=== PATIENT | male | born 1965 | race Caucasian/White ===

== ENCOUNTER 2023-12-02 20:21 | Emergency (ER) | payer MEDICAID, SELFPAY ==
[2023-12-02 20:29] VITALS: BP 168/105; PULSE 102; RESP 20; O2SAT 93; BMI 33.7
--- NOTE | 2023-12-02 20:34 | ECG_ITS ---
[facility] Test Date: 2023-12-02 Pat Name: Estrada Bangura Department: Room: Gender: Male Design Checker: : 1965 Requested By: Lane Castro Order Number: [id number] Ricky MD: Beau Denny M.D. Measurements Intervals [place] Rate: 100 P: 32 [place]: 165 QRS: 70 QRSD: 105 T: 10 QT: 389 QTc: 503 Interpretive Statements SINUS TACHYCARDIA NONSPECIFIC ST & T-WAVE ABNORMALITY ABNORMAL RHYTHM ECG No previous ECG available for comparison Electronically Signed On 12-03-2023 8:21:40 PBX TECHNICIAN by Beau Denny M.D. [id number] f
--- NOTE | 2023-12-02 20:48 | XRR_ITS ---
PROCEDURE INFORMATION: Exam: XR Chest Exam date and time: 12/02/2023 8:58 PM Age: 58 years old Clinical indication: Angina pectoris; Patient HX: Chest pain; SOB; Additional info: Chest pain; Sobsind. TECHNIQUE: Imaging protocol: Radiologic exam of the chest. Views: 1 view. COMPARISON: No relevant prior studies available. FINDINGS: Lungs: Unremarkable. No consolidation. Pleural spaces: Unremarkable. No pleural effusion. No pneumothorax. Heart/Mediastinum: Unremarkable. No cardiomegaly. Bones/joints: Unremarkable. XR/XR chest 1V portable [id number] IMPRESSION: No acute findings.
--- NOTE | 2023-12-02 20:48 | ECG_ITS ---
[facility] Test Date: 2024-01-31 Pat Name: Estrada Bangura Department: Room: Gender: Male Heel Seat Sander: : 1965 Requested By: Chang Templeton Order Number: [id number] Ricky MD: Ifeanyi Almendarez M.D. Measurements Intervals [place] Rate: 98 P: 3 MO: 152 QRS: 57 QRSD: 109 T: 60 QT: 382 QTc: 488 Interpretive Statements SINUS RHYTHM WITH OCCASIONAL SUPRAVENTRICULAR PREMATURE COMPLEXES Compared to ECG 12/21/2023 03:02:31 No significant changes Electronically Signed On 01-31-2024 18:40:03 CDT by Ifeanyi Almendarez M.D. [id number] f
[2023-12-02 20:57] LABS: Basophils % 0.3 %; Eosinophils % 0.2 %; Hematocrit 43.5 % (37-53); Lymphocytes # 3.1 10^3/uL (0.8-4.8); Lymphocytes % 35.4 %; Mean Corpuscular HGB Conc 32.4 g/dL (30-55); Mean Corpuscular Hemoglobin 27.2 pg (27-33); Mean Platelet Volume 8.2 fL (7.4-10.4); Monocytes # 0.8 10^3/uL (0.2-0.9); Monocytes % 8.6 %; Neutrophils # 4.79 10^3/uL (1.8-7.7); Nucleated Red Blood Cells % 0 %; Platelet Count 195 10^3/cmm (157-399); Red Blood Count 5.18 10^6/uL (3.85-5.65); Red Cell Distribution Width 13.4 % (12.1-15.1); White Blood Count 8.72 10^3/uL (3.29-11.43)
[2023-12-02 21:07] LABS: Troponin(5th) Baseline 15 ng/L (0-15)
[2023-12-02 21:09] LABS: Alanine Aminotransferase 34 U/L (0-41); Albumin Level 4.1 g/dL (3.5-5.2); Alkaline Phosphatase 63 U/L (40-130); Anion Gap 19.1 (5-19); Aspartate Amino Transferase 23 U/L (0-40); Blood Urea Nitrogen 23 mg/dL (6-20); Calcium 9.2 mg/dL (8.5-10.5); Carbon Dioxide 26 mmol/L (22-29); Chloride 101 mmol/L (98-107); Globulin 2.4 g/dL (1.3-4.6); Glomerular Filtration Rate 76.5 mL/min (90-130); Glucose 132 mg/dL (65-115); Osmolality Calculated 302 mOsm/kg (285-295); Potassium 3.1 mmol/L (3.5-5.1); Sodium 143 mmol/L (136-145); Total Bilirubin 0.2 mg/dL (0.15-1.2); Total Protein 6.5 g/dL (6.6-8.7)
[2023-12-02 21:14] LABS: Influenza A by IFA negative (Negative); Influenza B by IFA negative (Negative); SARS Covid-2 Antigen negative (Negative)
--- NOTE | 2023-12-02 21:27 | W.ED.CHESTPA ---
HPI - Chest Pain General: Chief Complaint: Chest Pain Stated Complaint: Sob chest pain Time Seen by Provider: 12/02/23 20:29 History of Present Illness: This patient is a 58-year-old white male who presents to the emergency department complaining of shortness of breath. He states he was recently diagnosed with fluid on his lungs and pneumonia. States he has been on water pills and yesterday was placed on Levaquin. Associated symptoms: Reports dyspnea Review of Systems General: Reports: 10 or more systems reviewed and unremarkable except in HPI and below Resp: Reports: dyspnea Physical Exam Const: COMMON NORMALS: no acute distress, patient oriented x3 and no limitations GENERAL APPEARANCE: cooperative and comfortable HENMT: COMMON NORMALS: normocephalic, atraumatic, Normal nasal mucous membranes and turbinates present, moist oral mucous membranes and oropharynx normal HEAD & SCALP: normal to inspection, normocephalic and atraumatic FACE & SINUS: normal facial exam NOSE: Normal nasal mucous membranes and turbinates present Eye: COMMON NORMALS: Equal, round and reactive pupils present, EOMs intact bilaterally and conjunctivae normal GENERAL EYE: appearance normal, both eyes and all related structures CONJUNCTIVA: Yes conjunctivae normal PUPIL: Yes Equal, round and reactive pupils present Neck/C-Spine: COMMON NORMALS: supple and no JVD Chest: COMMONS NORMALS: normal inspection of the chest Resp: COMMON NORMALS: normal respiratory effort and clear to auscultation bilaterally AUSCULTATION: clear to auscultation bilaterally Cardio: COMMON NORMALS: no JVD, regular rate, regular rhythm, No gallops present (Cardio), No murmurs present (Cardio) and No rub (Cardio) RATE: regular rate RHYTHM: regular rhythm GI: COMMON NORMALS: Normal to inspection, nondistended, normoactive bowel sounds present, Soft to palpation and non-tender AUSCULTATION: Yes normoactive bowel sounds PALPATION: Yes Soft to palpation : COMMON NORMALS: Yes no CVA tenderness BLADDER/KIDNEY EXAM: Yes no CVA tenderness Back/Pelvis: COMMON NORMALS: no CVA tenderness and thoracic and lumbar spine normal to inspection Extremity: COMMON NORMALS: normal to inspection Neuro: COMMON NORMALS: patient oriented x3 and CN's II-XII intact bilaterally Psych: COMMON NORMALS: mental status grossly normal, Normal thought process present and cooperative THOUGHT PROCESS: Normal thought process present Skin: COMMON NORMALS: no rashes or lesions noted, turgor normal and no jaundice GENERAL SKIN EXAM: no rashes or lesions noted and turgor normal Course Vital Signs: Vital signs: Vital Signs Pulse Rate 102 H 12/02/23 20:29 Respiratory Rate 20 H 12/02/23 20:29 Blood Pressure 168/105 12/02/23 20:29 Pulse Oximetry 93 12/02/23 20:29 Oxygen Delivery Me thod Room Air 12/02/23 20:29 MDM - Chest Pain Medical Decision Making EKG revealed sinus rhythm with no ST segment abnormalities. Chest x-ray did not reveal any infiltrates, pleural effusions or cardiomegaly. CBC and CMP were normal. Troponin was 15. COVID and influenza negative. I discussed all the results with the patient. Patient seemed upset. I told him I certainly do not see any fluid on his lungs at this time and there are no infiltrates. I recommended he continue the Levaquin that is provider placed him on yesterday. I recommended he follow-up in the clinic for recheck. He was discharged in stable condition. Lab Data 12/02/23 20:38 12/02/23 20:38 Radiology Impressions Chest X-Ray 12/02/23 20:48 IMPRESSION: No acute findings. Laboratory Results WBC 8.72 10^3/uL (3.29-11.43) 12/02/23 20:38 RBC 5.18 10^6/uL (3.85-5.65) 12/02/23 20:38 Hgb 14.10 g/dL (11.27-16.99) 12/02/23 20:38 Hct 43.5 % (37-53) 12/02/23 20:38 MCV 84.0 fl (82-101) 12/02/23 20:38 MCH 27.2 pg (27-33) 12/02/23 20:38 MCHC 32.4 g/dL (30-55) 12/02/23 20:38 RDW 13.4 % (12.1-15.1) 12/02/23 20:38 Plt Count 195 10^3/cmm (157-399) 12/02/23 20:38 MPV 8.2 fL (7.4-10.4) 12/02/23 20:38 Neut % (Auto) 55.0 % 12/02/23 20:38 Lymph % (Auto) 35.4 % 12/02/23 20:38 [place] % (Auto) 8.6 % 12/02/23 20:38 Eos % (Auto) 0.2 % 12/02/23 20:38 Baso % (Auto) 0.3 % 12/02/23 20:38 Neut # (Auto) 4.79 10^3/uL (1.8-7.7) 12/02/23 20:38 Lymph # (Auto) 3.1 10^3/uL (0.8-4.8) 12/02/23 20:38 [place] # (Auto) 0.8 10^3/uL (0.2-0.9) 12/02/23 20:38 Eos # (Auto) 0.0 10^3/uL (0.0-0.8) 12/02/23 20:38 Baso # (Auto) 0.0 10^3/uL (0.0-0.1) 12/02/23 20:38 Nucleated RBC % (auto) 0 % 12/02/23 20:38 Nucleated RBCs # 0.0 /100WBC 12/02/23 20:38 Sodium 143 mmol/L (136-145) 12/02/23 20:38 Potassium 3.1 mmol/L (3.5-5.1) L 12/02/23 20:38 Chloride 101 mmol/L (98-107) 12/02/23 20:38 Carbon Dioxide 26 mmol/L (22-29) 12/02/23 20:38 Anion Gap 19.1 (5-19) H 12/02/23 20:38 BUN 23 mg/dL (6-20) H 12/02/23 20:38 Creatinine 1.0 mg/dL (0.7-1.2) 12/02/23 20:38 GFR Calculation 76.5 mL/min (90-130) L 12/02/23 20:38 Glucose 132 mg/dL (65-115) H 12/02/23 20:38 Calculated Osmolality 302 mOsm/kg (285-295) H 12/02/23 20:38 Calcium 9.2 mg/dL (8.5-10.5) 12/02/23 20:38 Total Bilirubin 0.2 mg/dL (0.15-1.2) 12/02/23 20:38 AST 23 U/L (0-40) 12/02/23 20:38 ALT 34 U/L (0-41) 12/02/23 20:38 Alkaline Phosphatase 63 U/L (40-130) 12/02/23 20:38 Troponin T Baseline 15 ng/L (0-15) 12/02/23 20:38 Total Protein 6.5 g/dL (6.6-8.7) L 12/02/23 20:38 Albumin 4.1 g/dL (3.5-5.2) 12/02/23 20:38 Globulin 2.4 g/dL (1.3-4.6) 12/02/23 20:38 Influenza Type A Ag negative (Negative) 12/02/23 20:44 Influenza Type B Ag negative (Negative) 12/02/23 20:44 SARS-CoV-2 Ag (Rapid) negative (Negative) 12/02/23 20:44 All radiology interpretation(s) finalized by discharge Discharge Plan Discharge Patient Disposition: Home Clinical Impression: Shortness of breath Condition: Stable Discharge Orders: Discharge ED (Routine); Ordered 12/02/23 Ordered By: Chang Templeton Referrals: Traci Hoskins DO [Primary Care Provider] - 1-3 days Coding Level of Care Code ED Granite Sandblaster Apprentice for Pablo Borges
[2023-12-02 21:32] LABS: NT Pro B Type Natriuretic Pept 819 pg/mL (0-125)
--- NOTE | 2023-12-02 21:46 | PC.NURSE ---
Doctor spoke to patient and explained that his labs and tests looked good and he was going to be discharged home. The patient became furious, and states I do not like being called a liar, something was wrong . When discharging patient ,I explained that he needs to follow up with his PCP with ongoing treatment .
--- NOTE | 2023-12-03 07:41 | W.ED.CHESTPA ---
HPI - Chest Pain General: Chief Complaint: Chest Pain Stated Complaint: Sob chest pain Time Seen by Provider: 12/02/23 20:29 History of Present Illness: This is an addendum to the chart I completed on this patient yesterday. I attempted to contact the patient this morning to discuss the need for a CT angiogram of his chest to rule out pulmonary embolism if he has not had that study done yet. I did leave him a message. Course Vital Signs: Vital signs: Vital Signs Pulse Rate 102 H 12/02/23 20:29 Respiratory Rate 20 H 12/02/23 20:29 Blood Pressure 168/105 12/02/23 20:29 Pulse Oximetry 93 12/02/23 20:29 Oxygen Delivery Me thod Room Air 12/02/23 20:29 MDM - Chest Pain Medical Decision Making See HPI. Lab Data 12/02/23 20:38 12/02/23 20:38 Radiology Impressions Chest X-Ray 12/02/23 20:48 IMPRESSION: No acute findings. Laboratory Results WBC 8.72 10^3/uL (3.29-11.43) 12/02/23 20:38 RBC 5.18 10^6/uL (3.85-5.65) 12/02/23 20:38 Hgb 14.10 g/dL (11.27-16.99) 12/02/23 20:38 Hct 43.5 % (37-53) 12/02/23 20:38 MCV 84.0 fl (82-101) 12/02/23 20:38 MCH 27.2 pg (27-33) 12/02/23 20:38 MCHC 32.4 g/dL (30-55) 12/02/23 20:38 RDW 13.4 % (12.1-15.1) 12/02/23 20:38 Plt Count 195 10^3/cmm (157-399) 12/02/23 20:38 MPV 8.2 fL (7.4-10.4) 12/02/23 20:38 Neut % (Auto) 55.0 % 12/02/23 20:38 Lymph % (Auto) 35.4 % 12/02/23 20:38 [place] % (Auto) 8.6 % 12/02/23 20:38 Eos % (Auto) 0.2 % 12/02/23 20:38 Baso % (Auto) 0.3 % 12/02/23 20:38 Neut # (Auto) 4.79 10^3/uL (1.8-7.7) 12/02/23 20:38 Lymph # (Auto) 3.1 10^3/uL (0.8-4.8) 12/02/23 20:38 [place] # (Auto) 0.8 10^3/uL (0.2-0.9) 12/02/23 20:38 Eos # (Auto) 0.0 10^3/uL (0.0-0.8) 12/02/23 20:38 Baso # (Auto) 0.0 10^3/uL (0.0-0.1) 12/02/23 20:38 Nucleated RBC % (auto) 0 % 12/02/23 20:38 Nucleated RBCs # 0.0 /100WBC 12/02/23 20:38 Sodium 143 mmol/L (136-145) 12/02/23 20:38 Potassium 3.1 mmol/L (3.5-5.1) L 12/02/23 20:38 Chloride 101 mmol/L (98-107) 12/02/23 20:38 Carbon Dioxide 26 mmol/L (22-29) 12/02/23 20:38 Anion Gap 19.1 (5-19) H 12/02/23 20:38 BUN 23 mg/dL (6-20) H 12/02/23 20:38 Creatinine 1.0 mg/dL (0.7-1.2) 12/02/23 20:38 GFR Calculation 76.5 mL/min (90-130) L 12/02/23 20:38 Glucose 132 mg/dL (65-115) H 12/02/23 20:38 Calculated Osmolality 302 mOsm/kg (285-295) H 12/02/23 20:38 Calcium 9.2 mg/dL (8.5-10.5) 12/02/23 20:38 Total Bilirubin 0.2 mg/dL (0.15-1.2) 12/02/23 20:38 AST 23 U/L (0-40) 12/02/23 20:38 ALT 34 U/L (0-41) 12/02/23 20:38 Alkaline Phosphatase 63 U/L (40-130) 12/02/23 20:38 Troponin T Baseline 15 ng/L (0-15) 12/02/23 20:38 NT-Pro-B Natriuret Pep 819 pg/mL (0-125) H 12/02/23 20:38 Total Protein 6.5 g/dL (6.6-8.7) L 12/02/23 20:38 Albumin 4.1 g/dL (3.5-5.2) 12/02/23 20:38 Globulin 2.4 g/dL (1.3-4.6) 12/02/23 20:38 Influenza Type A Ag negative (Negative) 12/02/23 20:44 Influenza Type B Ag negative (Negative) 12/02/23 20:44 SARS-CoV-2 Ag (Rapid) negative (Negative) 12/02/23 20:44 All radiology interpretation(s) finalized by discharge Discharge Plan Discharge Patient Disposition: Home Clinical Impression: Shortness of breath Condition: Stable Discharge Orders: Discharge ED (Routine); Ordered 12/02/23 Ordered By: Chang Templeton Referrals: Traci Hoskins DO [Primary Care Provider] - 1-3 days Coding Level of Care Code ED Manufacturing Teacher for Pablo Borges
== END 2023-12-02 21:48 | disposition home or self-care (01) ==
PROVIDERS: Emergency Provider Emergency Medicine; PCP Family Medicine
DX: R06.02 Shortness of breath (principal); Z11.52 Encounter for screening for COVID-19
CPT/HCPCS: 71045; 80053; 83880; 84484; 85025; 87426; 87804; 93005; 99285

== ENCOUNTER 2023-12-20 10:06 | Inpatient (IN) | payer MEDICAID, SELFPAY ==
[2023-12-20] VITALS (13 sets, daily range): BP systolic 132–169; BP diastolic 80–109; PULSE 80–98; RESP 16–23; TEMP 36.4–36.9; O2SAT 94–99; BMI 35.6; BMI 35.2
--- NOTE | 2023-12-20 10:11 | ECG_ITS ---
[facility] Test Date: 2023-12-20 Pat Name: Estrada Bangura Department: Room: Gender: Male Bander: : 1965 Requested By: Jarrod Orozco Order Number: [id number] Ricky MD: Shine López M.D. Measurements Intervals [place] Rate: 87 P: 24 [place]: 136 QRS: 80 QRSD: 98 T: 7 QT: 394 QTc: 475 Interpretive Statements SINUS RHYTHM WITH OCCASIONAL SUPRAVENTRICULAR PREMATURE COMPLEXES NONSPECIFIC T-WAVE ABNORMALITY Compared to ECG 12/02/2023 20:25:30 Sinus tachycardia no longer present T-wave abnormality still present Electronically Signed On 12-20-2023 11:08:16 LIVE TRUCK OPERATOR by Shine López M.D. [id number] f
--- NOTE | 2023-12-20 10:12 | XR_ITS ---
WS: [id number] Exam: XR chest 1V portable [id number] Date/Time of Exam: 12/20/2023 10:12 AM Reason For Exam: sob Comparison 12/02/2023. There is pulmonary vascular congestion with prominent septal lines in the lateral lung zones. There i s likely interstitial pulmonary edema. Cardiomediastinal silhouette is unremarkable. Minimal fluid in the minor fissure on the RIGHT. The lungs are fully expanded. No consolidating infiltrates noted. IMPRESSION: 1. Pulmonary vascular congestion with prominent septal lines in the lateral lung zones suspicious for interstitial pulmonary edema.
--- NOTE | 2023-12-20 10:30 | CT_ITS ---
WS: [id number] CT CHEST ANGIOGRAPHY WITH REFORMATS HISTORY: sob TECHNIQUE: Contiguous axial images are obtained through the chest during arterial injection of intrav enous contrast. Images are reconstructed to evaluate the pulmonary arteries. MIP imaging also reviewe d. All CT scans at [facility] use at least one of these dose optimization techniques: automat ed exposure control; mA and/or kV adjustment per patient size (includes targeted exams where dose is matched to clinical indication); or iterative reconstruction. CONTRAST: Omnipaque 350; 100 mL IV. DLP: 530.46 mGy.cm COMPARISON: None available. No central pulmonary embolism. Good opacification of the pulmonary arteries centrally into the lobar and segmental branches. Beyond the segmental branches the opacification is becoming limited by breath ing motion artifact and pulmonary edema. There is no RIGHT heart strain. Moderate LEFT heart enlargem ent. Small bilateral pleural effusions. No pericardial effusion. Coronary artery calcifications are n oted. Prominent mediastinal and hilar lymph nodes. RIGHT hilar lymph nodes measure up to 15 mm in luiz meter. Bilateral hilar and bilateral paratracheal lymph nodes. These may all be reactive lymph nodes. There is breathing motion artifact and mild pulmonary edema. There is some component of tree-in-bud a irspace disease which is typically seen with endobronchial pneumonia. Small hiatal hernia. Marked hepatic steatosis. The liver appears enlarged but is not completely included on this exam. No adrenal mass. Gallbladder is not identified. No destructive bone lesions. IMPRESSION: 1. No pulmonary embolism. 2. Marked LEFT heart enlargement. 3. Small bilateral pleural effusions. 4. Mild pulmonary edema and possible pneumonitis. 5. Mediastinal and hilar enlarged lymph nodes. Suspect these are reactive lymph nodes. 6. Marked hepatic steatosis.
--- NOTE | 2023-12-20 10:31 | ED_ITS ---
HPI - SOB/Dyspnea 2 General: Chief Complaint: Shortness of Breath/Dyspnea Stated Complaint: sob Time Seen by Provider: 12/20/23 10:21 Source: patient Mode of arrival: ambulatory Limitations: no limitations History of Present Illness: HPI Narrative: 58-year-old male states been having shor tness of breath over the last 3 weeks he been seen here recently had a normal workup he states he is continue to have dyspnea and a mild cough he denies any chest pain denies any fevers he had some slight increase in swelling denies any vomiting or diarrhea. Patient's pulse ox here is 97%. Associated symptoms: Deny abdominal pain, chest pain, fever(s), nausea or vomiting Review of Systems 2 Const: Denies: fever(s), chills, body aches or change in appetite Eyes: Denies: blurry vision or eye discomfort ENMT: Denies: throat pain or dental pain Card: Denies: chest pain Resp: Reports: dyspnea GI: Denies: abdominal pain, nausea, vomiting or diarrhea Musc: Denies: neck pain or back pain Skin/Breast: Denies: rash Neuro: Denies: headache(s) Physical Exam 2 Const: COMMON NORMALS: no acute distress, patient oriented x3 and healthy appearing HENMT: COMMON NORMALS: normocephalic and atraumatic HEAD & SCALP: n ormocephalic and atraumatic Eye: COMMON NORMALS: conjunctivae normal CONJUNCTIVA: Yes conjunctivae normal Neck/C-Spine: COMMON NORMALS: full ROM and supple Chest: COMMONS NORMALS: normal inspection of the chest Resp: COMMON NORMALS: No retractions, No use of accessory muscles and clear to auscultation bilaterally AUSCULTATION: clear to auscultation bilaterally Cardio: COMMON NORMALS: regular rate, regular rhythm and No murmurs present (Cardio) RATE: regular rate RHYTHM: regular rhythm Extremity: COMMON NORMALS: normal to inspection and full ROM Neuro: COMMON NORMALS: patient oriented x3, moves all extremities and no focal motor deficits Psych: COMMON NORMALS: mental status grossly normal, Normal thought process present and cooperative THOUGHT PROCESS: Normal thought process present Skin: COMMON NORMALS: no rashes or lesions noted and no wounds GENERAL SKIN EXAM: no rashes or lesions noted Course 2 Vital Signs: Vital signs: Vital Signs Temperature 98.2 F 12/20/23 10:21 Pulse Rate 84 12/20/23 12:00 Respiratory Rate 18 12/20/23 12:00 Blood Pressure 147/97 12/20/23 12:30 Pulse Oximetry 99 12/20/23 12:30 Oxygen Delivery Me thod Room Air 12/20/23 10:21 MDM - SOB/Dyspnea Medical Decision Making Patient presents here with shortness of breath his CT and x-ray shows pulmonary edema along with cardiac enlargement he likely has undiagnosed CHF did give him Lesly spoke to the hospitalist and will admit at this time. Medical Records I reviewed the patient's medical records. Lab Data I reviewed the patient's lab results. 12/20/23 10:31 12/20/23 10:31 Labs/Radiology: Laboratory Results WBC 9.57 10^3/uL (3.29-11.43) 12/20/23 10:31 RBC 5.10 10^6/uL (3.85-5.65) 12/20/23 10:31 Hgb 14.10 g/dL (11.27-16.99) 12/20/23 10:31 Hct 43.5 % (37-53) 12/20/23 10:31 MCV 85.3 fl (82-101) 12/20/23 10:31 MCH 27.6 pg (27-33) 12/20/23 10:31 MCHC 32.4 g/dL (30-55) 12/20/23 10:31 RDW 13.4 % (12.1-15.1) 12/20/23 10:31 Plt Count 167 10^3/cmm (157-399) 12/20/23 10:31 MPV 8.4 fL (7.4-10.4) 12/20/23 10:31 Neut % (Auto) 73.7 % 12/20/23 10:31 Lymph % (Auto) 17.5 % 12/20/23 10:31 [place] % (Auto) 7.1 % 12/20/23 10:31 Eos % (Auto) 0.9 % 12/20/23 10:31 Baso % (Auto) 0.4 % 12/20/23 10:31 Neut # (Auto) 7.05 10^3/uL (1.8-7.7) 12/20/23 10:31 Lymph # (Auto) 1.7 10^3/uL (0.8-4.8) 12/20/23 10:31 [place] # (Auto) 0.7 10^3/uL (0.2-0.9) 12/20/23 10:31 Eos # (Auto) 0.1 10^3/uL (0.0-0.8) 12/20/23 10:31 Baso # (Auto) 0.0 10^3/uL (0.0-0.1) 12/20/23 10:31 Nucleated RBC % (auto) 0 % 12/20/23 10:31 Nucleated RBCs # 0.0 /100WBC 12/20/23 10:31 D-Dimer 0.99 ug/mLFEU (0-0.59) H 12/20/23 10:31 Sodium 141 mmol/L (136-145) 12/20/23 10:31 Potassium 3.5 mmol/L (3.5-5.1) 12/20/23 10:31 Chloride 106 mmol/L (98-107) 12/20/23 10:31 Carbon Dioxide 24 mmol/L (22-29) 12/20/23 10:31 Anion Gap 14.5 (5-19) 12/20/23 10:31 BUN 12 mg/dL (6-20) 12/20/23 10:31 Creatinine 0.8 mg/dL (0.7-1.2) 12/20/23 10:31 GFR Calculation 98.9 mL/min (90-130) 12/20/23 10:31 Glucose 126 mg/dL (65-115) H 12/20/23 10:31 Calculated Osmolality 293 mOsm/kg (285-295) 12/20/23 10:31 Calcium 8.5 mg/dL (8.5-10.5) 12/20/23 10:31 Total Bilirubin 0.3 mg/dL (0.15-1.2) 12/20/23 10:31 AST 24 U/L (0-40) 12/20/23 10:31 ALT 47 U/L (0-41) H 12/20/23 10:31 Alkaline Phosphatase 66 U/L (40-130) 12/20/23 10:31 Troponin T Baseline 14 ng/L (0-15) 12/20/23 10:31 NT-Pro-B Natriuret Pep 1208 pg/mL (0-125) H 12/20/23 10:31 Total Protein 6.2 g/dL (6.6-8.7) L 12/20/23 10:31 Albumin 4.0 g/dL (3.5-5.2) 12/20/23 10:31 Globulin 2.2 g/dL (1.3-4.6) 12/20/23 10:31 All radiology interpretation(s) finalized by discharge EKG Data EKG 1: I personally reviewed and interpreted this EKG as follows: EKG Interpretation Date: 12/20/23 EKG interpretation time: 10:11 Interpretation: nsr hr [address] or t wave abnormalities qrs 98 qtc 438 Discharge Plan Discharge Patient Disposition: Admitted As Inpatient Clinical Impression: Pulmonary edema Condition: Stable Prescriptions: No Action furosemide 20 mg tablet 20 mg PO DAILY metoprolol tartrate 25 mg tablet 25 mg PO BID hydrochlorothiazide 12.5 mg tablet 12.5 mg PO DAILY Symbicort 160-4.5 mcg/actuation HFA aerosol inhaler 2 puff INHALATION BID Referrals: Traci Hoskins DO [Primary Care Provider] - Coding Level of Care Code ED Pyridine Recovery Operator for Chg Jony
--- NOTE | 2023-12-20 10:48 | PC.PHAR ---
pt states he takes care of his own medications-pt states he stop taking his lasix 20mg daily a week ago ext shows last filled 12/01/23 30d/s pts states they lost the lasix and unsure where it is-pt states takes the orange peach looking pill once a day (hctz 12.5mg)?? and the white pill bid (metoptolol tartrate 25mg bid filled 12/01/23 0d/s)???
[2023-12-20 11:01] LABS: Basophils % 0.4 %; Eosinophils # 0.1 10^3/uL (0.0-0.8); Eosinophils % 0.9 %; Hematocrit 43.5 % (37-53); Lymphocytes # 1.7 10^3/uL (0.8-4.8); Lymphocytes % 17.5 %; Mean Corpuscular HGB Conc 32.4 g/dL (30-55); Mean Corpuscular Hemoglobin 27.6 pg (27-33); Mean Corpuscular Volume 85.3 fl (82-101); Mean Platelet Volume 8.4 fL (7.4-10.4); Monocytes # 0.7 10^3/uL (0.2-0.9); Monocytes % 7.1 %; Neutrophils # 7.05 10^3/uL (1.8-7.7); Neutrophils % 73.7 %; Nucleated Red Blood Cells % 0 %; Platelet Count 167 10^3/cmm (157-399); Red Cell Distribution Width 13.4 % (12.1-15.1); White Blood Count 9.57 10^3/uL (3.29-11.43)
[2023-12-20 11:15] LABS: D Dimer 0.99 ug/mLFEU (0-0.59)
[2023-12-20] MEDS: iohexol 350 mg/mL 500 mL Btl (per mL) IV (11:27)
[2023-12-20 11:30] LABS: Troponin(5th) Baseline 14 ng/L (0-15)
[2023-12-20 11:37] LABS: Alanine Aminotransferase 47 U/L (0-41); Alkaline Phosphatase 66 U/L (40-130); Anion Gap 14.5 (5-19); Aspartate Amino Transferase 24 U/L (0-40); Blood Urea Nitrogen 12 mg/dL (6-20); Calcium 8.5 mg/dL (8.5-10.5); Carbon Dioxide 24 mmol/L (22-29); Chloride 106 mmol/L (98-107); Creatinine Clr Calc Pharmacy 124.8699; Globulin 2.2 g/dL (1.3-4.6); Glomerular Filtration Rate 98.9 mL/min (90-130); Glucose 126 mg/dL (65-115); NT Pro B Type Natriuretic Pept 1208 pg/mL (0-125); Osmolality Calculated 293 mOsm/kg (285-295); Potassium 3.5 mmol/L (3.5-5.1); Sodium 141 mmol/L (136-145); Total Bilirubin 0.3 mg/dL (0.15-1.2); Total Protein 6.2 g/dL (6.6-8.7)
[2023-12-20] MEDS: acetaminophen 500 mg Tablet 1000 MG PO (11:47)
[2023-12-20] MEDS: FUROsemide 10 mg/mL SDV 4mL 40 MG IVP (11:51)
--- NOTE | 2023-12-20 12:12 | ECG_ITS ---
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 Measurements Intervals [place] Rate: 87 P: 23 ND: 130 QRS: 74 QRSD: 99 T: 40 QT: 411 QTc: 496 Interpretive Statements SINUS RHYTHM WITH OCCASIONAL SUPRAVENTRICULAR PREMATURE COMPLEXES Compared to ECG 12/20/2023 10:11:15 T-wave abnormality no longer present Electronically Signed On 12-20-2023 15:27:43 CONSTRUCTION TRENCH DIGGER by Shine López M.D. [email or web address] [facility] community hospitalBroadband Networks Wireless Internet/store/OM/[id number]
--- NOTE | 2023-12-20 13:00 | P.HP_ITS ---
Providers/Chief Complaint 2 Primary Care Provider: Traci Hoskins DO Chief Complaint: sob History of Present Illness Estrada Bangura is a 58 year old male with no known history of congestive heart failure presented to the hospital today for complaint of shortness of breath. He says this has been going on for the last few weeks and it has now worsened. He has been to the hospital before with a similar complaint on the of this month. He says he was recently diagnosed with heart failure and he has been on water pills. He was also placed on Levaquin earlier on December 02. Chest x- ray did not reveal any infiltrates at that time effusions or cardiomegaly. Troponin was 15. COVID influenza was negative. Patient was upset and he was recommended to continue Levaquin and he was discharged home. He was called back the next day and was requested to return to the ER for CT angiogram of his chest to rule out PE. Today he presents with shortness of breath once again. Denies any abdominal pain chest pain, fever, nausea, vomiting. ED course: 147 over 97 g rate 18, pulse 84, temperature 98.2, saturating 99% on room air. CT chest PE protocol was completed which ruled out a PE. Chest x-ray does show evidence of pulmonary edema along with cardiomegaly. He was given Lasix IV in the ER and recommended for admission. BNP 1208. Creatinine 0.8. Review of Systems 2 Const: Denies: fever(s) Eyes: Denies: change in vision ENMT: Denies: throat pain Card: Reports: swelling of feet/ankles Resp: Reports: dyspnea GI: Denies: abdominal pain : Denies: flank pain Musc: Denies: neck pain Medications/Allergies Home Medications Medication Instructions Recorded Confirmed Last Taken Type budesonide-formoterol HFA 160 2 puff inhalation BID 12/20/23 12/20/23 Unknown History mcg-4.5 mcg/actuation aerosol inhaler (Symbicort) furosemide 20 mg tablet 20 mg PO DAILY 12/20/23 12/20/23 1 Week Ago History ~12/13/23 not taken for a week hydrochlorothiazide 12.5 mg tablet 12.5 mg PO DAILY 12/20/23 12/20/23 12/20/23 History metoprolol tartrate 25 mg tablet 25 mg PO BID 12/20/23 12/20/2312/20/24 History Allergies Allergy/AdvReac Type Severity Reaction Status Date / Time No Known Allergies Allergy Verified 12/20/23 10:41 PFSH Acute 2 PFSH: Medical History No pertinent past medical history Surgical History No pertinent past surgical history Vitals/I&O/Wt Last Vital Signs Temp 98.2 F 12/20/23 10:21 Pulse 84 12/20/23 12:00 Resp 18 12/20/23 12:00 BP 147/97 12/20/23 12:30 Pulse Ox 99 12/20/23 12:30 O2 Del Method Room Air 12/20/23 10:21 Weight last 48 hrs Weight 112.491 kg Physical Exam 2 Narrative: Patient currently looks fluid overloaded Currently on room air Awake and alert Anticipating Obese S1, S2 Nonfocal neuroexam Eating Berrios's Nonfocal neuroexam Data 12/21/23 05:11 12/21/23 05:11 A&P Assessment and plan (1) Pulmonary edema: (2) Congestive heart failure: (3) Elevated brain natriuretic peptide (BNP) level: Plan #New onset congestive heart failure #Shortness of breath most likely secondary to above #No other known medical problems ? Chest x-ray does show evidence of pulmonary edema ? BNP 1200 ? Oxygen therapy as needed ? Start Lasix 40 IV daily ? I would hold metoprolol for heart rate at this time ? Check respiratory viral panel ? Patient recently completed Levaquin ? Strict ins and outs ? Check echo ? Continue to monitor on telemetry. ? Follow troponins. He denies any chest pain at this time - check lipid panel, tsh, hemoglobin a1c - monitor electrolytes -CT chest completed no pulmonary embolism, marked left heart enlargement present. Mild pulmonary edema and possible pneumonitis present. Mediastinal and hilar enlarged lymph nodes, suspect these are reactive lymph node changes, marked hepatic steatosis. ? Check urine drug screen Full code Attestations 2 Medical Necessity Statement*: Expect > 48 hour midnight stay Diagnoses Pulmonary edema J81.1 Congestive heart failure I50.9 Elevated brain natriuretic peptide (BNP) level R79.89
--- NOTE | 2023-12-20 13:13 | USCV_ITS ---
Estrada Bangura Age: 58 Gender: M : 1965 Exam Date: 12/20/2023 12:55 Ordering Phys: Elba Mccormick MD Technologist: Exam Location: [facility] [place] Indication: chf BP: 147 / 97 HR: 0 Rhythm: Sinus Technical Quality: Adequate MEASUREMENTS (Male / Female) Normal Values 2D ECHO LV Diastolic Diameter PLAX 4.7 cm 4.2 - 5.9 / 3.9 - 5.3 cm IVS Diastolic Thickness 1.1 cm 0.6 - 1.0 / 0.6 - 0.9 cm IVS Systolic Thickness 1.2 cm LVPW Diastolic Thickness 1.1 cm 0.6 - 1.0 / 0.6 - 0.9 cm LVPW Systolic Thickness 1.5 cm LVOT Diameter 2.3 cm LV Ejection Fraction 2D Teich 48.5 % LV Ejection Fraction MOD 2C 67.5 % LV Ejection Fraction 2C AL 0.0 % LA Diameter 3.5 cm Aorta at Sinotubular Diameter 2.6 cm M-MODE LA Ao Ratio MM 1.3 AV Cusp Separation MM 2.2 cm DOPPLER AV Peak Velocity 131.4 cm/s LVOT Peak Velocity 103.0 cm/s AV Area Cont Eq vti 3.4 cm squared AV Area Cont Eq pk 3.2 cm squared MV Peak Velocity 114.0 cm/s MV Area PHT 8.0 cm squared Mitral E to A Ratio 1.5 TR Peak Velocity 116.0 cm/s TR Peak Gradient 5.4 mmHg TV Peak E Velocity 108.0 cm/s Right Atrial Pressure 3.0 mmHg Pulmonary Artery Systolic Pressu 8.4 mmHg PV Peak Velocity 109.7 cm/s FINDINGS Left Ventricle Moderate diffuse abilities left ventricular ejection fraction of 48.5%.mild left ventricular hypertrophy. Grade III/IV diastolic dysfunction (restrictive filling pattern), severely elevated filling pressures. Right Ventricle Normal right ventricular size and systolic function. Right Atrium The right atrium is normal in size. Left Atrium Mildly increased left atrial size. Mitral Valve Mild mitral annular calcification. Mild-moderate mitral valve regurgitation. Aortic Valve No gross abnormalities noted Tricuspid Valve No gross abnormalities noted Pulmonic Valve Pulmonic valve not well visualized. Pericardium No pericardial effusion. Aorta Normal aortic annulus size. IVC Inferior vena cava not visualized. CONCLUSIONS Moderate diffuse abilities left ventricular ejection fraction of 48.5%. Mildly increased left atrial size. Mild mitral annular calcification. Mild-moderate mitral valve regurgitation. Grade III/IV diastolic dysfunction (restrictive filling pattern), severely elevated filling pressures. There is no pericardial effusion. There are no intracardiac masses. No similar previous studies are available for comparison Dr Ifeanyi Almendarez MD FAC (Electronically Signed) Final Date: 20 December 2023 15:58 S
[2023-12-20 13:20] LABS: Troponin 5 2HR 12.94 ng/L (0-15)
[2023-12-20 13:21] LABS: Troponin 5 2HR Delta -1.06 ABS# (0-10)
[2023-12-20 13:43] LABS: Estmated Average Glucose 123; Hemoglobin A1C 5.9 % (4.0-6.0)
[2023-12-20 13:44] LABS: Chol HDL Ratio 4.46 mg/dL (1.0-5.00); Cholesterol 183 mg/dL (0-200); HDL Cholesterol 41 mg/dL (60-100); LDL Cholesterol Calculated 86 mg/dL (50-129); Thyroid Stimulating Hormone 1.92 uIU/mL (0.27-4.20); Triglycerides 281 mg/dL (0-150)
--- NOTE | 2023-12-20 13:59 | PC.NURSE ---
attempted report, no answer at this time
[2023-12-20] MEDS: enoxaparin 40 mg/0.4 mL Syringe SUBCUT (15:24)
--- NOTE | 2023-12-20 15:59 | ECG_ITS ---
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 Measurements Intervals [place] Rate: 94 P: 55 MI: 170 QRS: 58 QRSD: 101 T: 61 QT: 381 QTc: 479 Interpretive Statements SINUS RHYTHM WITH OCCASIONAL SUPRAVENTRICULAR PREMATURE COMPLEXES Compared to ECG 12/20/2023 12:51:52 No significant changes Electronically Signed On 12-21-2023 7:24:04 [employer] by Shine López M.D. [email or web address] memorial hospitalMature Women's Health Solutionsst. mary's medical centerDataMotion/store/OM/[id number]
--- NOTE | 2023-12-20 18:05 | PM.CONSULT ---
Providers/Reason For Consult Consulting Physician/Specialty*: CAMRON Almendarez MD/cardiology Reason for Consult*: Patient with a LV dysfunction and congestive heart failure Requesting Physician: Dr. Mccormick Attending Physician: Elba Mccormick MD Primary Care Provider: Traci Hoskins DO History of Present Illness History of Present Illness Estrada Bangura is a 58 year old male presenting with progressive shortness of breath for the last 1 month. He also has been noticing swelling of the lower extremities for the last couple of weeks. He may have gained around 15 pounds in the last 1 month. He was found to have an LV ejection fraction on 48% by echocardiogram. Cardiology consult is requested for further cardiac evaluation recommendations. This patient has a history of hypertension for the last 40 years or so. No history for diabetes or dyslipidemia. No previous history for any coronary artery disease or congestive heart failure. He smokes marijuana and also uses meth off and on. No other substance abuse. Denies any history of of for diabetes, CVA, peripheral artery disease, kidney disease, liver disease or bleeding disorders. No history for any heart murmur or cardiac arrhythmia. His mother had some type of heart problems and had a sudden cardiac ? While undergoing some cardiac test in [place]. Details are not available. No other relevant family history. Patient is and has 3 children. Patient also has been having a productive cough for the last couple of weeks. He coughed up blood-tinged sputum 2 times. No hematemesis. Review of Systems Narrative: CONSTITUTIONAL: No fever or chills. EYES: No blurring of vision or other visual disturbances lately. ENT: No hoarseness of voice, auditory disturbances or sore throat. CARDIOVASCULAR: As mentioned above. RESPIRATORY: No significant cough. GASTROINTESTINAL: No hematemesis or melena. GENITOURINARY: No dysuria or hematuria. INTEGUMENTARY: No skin rashes or history of skin cancer. NEURO: No transient ischemic attacks or amaurosis. PSYCHIATRIC: No history of psychosis or major depression. HEMATOLOGIC: No bleeding disorders or significant anemia. ENDOCRINE: No history of polyuria or polydipsia. MUSCULOSKELETAL: No recent joint pain or swelling. ALLERGY/IMMUNOLOGY: As mentioned above. Medications/Allergies Home Medications Medication Instructions Recorded Confirmed Last Taken Type budesonide-formoterol HFA 160 2 puff inhalation BID 12/20/23 12/20/23 Unknown History mcg-4.5 mcg/actuation aerosol inhaler (Symbicort) furosemide 20 mg tablet 20 mg PO DAILY 12/20/23 12/20/23 1 Week Ago History ~12/13/23 not taken for a week hydrochlorothiazide 12.5 mg tablet 12.5 mg PO DAILY 12/20/23 12/20/23 12/20/23 History metoprolol tartrate 25 mg tablet 25 mg PO BID 12/20/23 12/20/23 12/20/23 History Allergies Allergy/AdvReac Type Severity Reaction Status Date / Time No Known Allergies Allergy Verified 12/20/23 10:41 Current Medications Generic Name Dose Route Start Last Admin Trade Name Freq PRN Reason Stop Dose Admin Enoxaparin Sodium 40 mg 12/20/23 13:15 12/20/23 15:24 Enoxaparin 40 Mg/0.4 Ml Syringe SUBCUT 40 mg Q24H TERESA Administration PFSH Acute PFSH: Medical History No pertinent past medical history Surgical History No pertinent past surgical history Vitals/I&O/Wt Last Vital Signs Temp 97.5 F L 12/20/23 16:32 Pulse 80 12/20/23 16:32 Resp 18 12/20/23 16:32 BP 169/95 12/20/23 16:32 Pulse Ox 94 12/20/23 16:32 O2 Del Method Room Air 12/20/23 16:32 Weight last 48 hrs Weight 245 lb Weight 248 lb Physical Exam Narrative: GENERAL: The patient is alert and oriented times three. Not in any acute distress. HEENT: No significant pallor, icterus or lymphadenopathy.Oral cavity: There are no mucous membrane lesions. NECK: Trachea appears to be central. No masses noted. No JVD or thyromegaly appreciated. RESPIRATORY: Chest is symmetrical. No intercostals muscle retraction or any accessory muscle activation. There is no chest wall tenderness. Breath sounds are heard bilaterally. No rales or rhonchi heard. No evidence of any consolidation. BREASTS: Deferred. HEART: The heart sounds are normal. No S3 or S4. No significant murmurs. No pericardial rub ABDOMEN: No vessel pulsations or distention. No tenderness. No organomegaly appreciated. Bowel sounds are normally heard. : Deferred. RECTAL: Deferred. LYMPHATIC: No lymphadenopathy noted in the neck. EXTREMITIES: 2+ edema both lower extremities. Features of chronic venous stasis. MUSCULOSKELETAL: No acute joint deformities or swelling SKIN: There are no significant rashes or ecchymosis NEUROPSYCHIATRIC: The patient is alert and oriented x3. Appears to be in a good mood. No tremors or rigidity noted. Data 12/20/23 10:31 12/20/23 10:31 Other Labs: Laboratory Last Values WBC 9.57 10^3/uL (3.29-11.43) 12/20/23 10:31 RBC 5.10 10^6/uL (3.85-5.65) 12/20/23 10:31 Hgb 14.10 g/dL (11.27-16.99) 12/20/23 10:31 Hct 43.5 % (37-53) 12/20/23 10:31 MCV 85.3 fl (82-101) 12/20/23 10:31 MCH 27.6 pg (27-33) 12/20/23 10:31 MCHC 32.4 g/dL (30-55) 12/20/23 10:31 RDW 13.4 % (12.1-15.1) 12/20/23 10:31 Plt Count 167 10^3/cmm (157-399) 12/20/23 10:31 MPV 8.4 fL (7.4-10.4) 12/20/23 10:31 Neut % (Auto) 73.7 % 12/20/23 10:31 Lymph % (Auto) 17.5 % 12/20/23 10:31 [place] % (Auto) 7.1 % 12/20/23 10:31 Eos % (Auto) 0.9 % 12/20/23 10:31 Baso % (Auto) 0.4 % 12/20/23 10:31 Neut # (Auto) 7.05 10^3/uL (1.8-7.7) 12/20/23 10:31 Lymph # (Auto) 1.7 10^3/uL (0.8-4.8) 12/20/23 10:31 [place] # (Auto) 0.7 10^3/uL (0.2-0.9) 12/20/23 10:31 Eos # (Auto) 0.1 10^3/uL (0.0-0.8) 12/20/23 10:31 Baso # (Auto) 0.0 10^3/uL (0.0-0.1) 12/20/23 10:31 Nucleated RBC % (auto) 0 % 12/20/23 10:31 Nucleated RBCs # 0.0 /100WBC 12/20/23 10:31 D-Dimer 0.99 ug/mLFEU (0-0.59) H 12/20/23 10:31 Sodium 141 mmol/L (136-145) 12/20/23 10:31 Potassium 3.5 mmol/L (3.5-5.1) 12/20/23 10:31 Chloride 106 mmol/L (98-107) 12/20/23 10:31 Carbon Dioxide 24 mmol/L (22-29) 12/20/23 10:31 Anion Gap 14.5 (5-19) 12/20/23 10:31 BUN 12 mg/dL (6-20) 12/20/23 10:31 Creatinine 0.8 mg/dL (0.7-1.2) 12/20/23 10:31 GFR Calculation 98.9 mL/min (90-130) 12/20/23 10:31 Glucose 126 mg/dL (65-115) H 12/20/23 10:31 Estimat Average Glucose 123 12/20/23 12:28 Hemoglobin A1c 5.9 % (4.0-6.0) 12/20/23 12:28 Calculated Osmolality 293 mOsm/kg (285-295) 12/20/23 10:31 Calcium 8.5 mg/dL (8.5-10.5) 12/20/23 10:31 Total Bilirubin 0.3 mg/dL (0.15-1.2) 12/20/23 10:31 AST 24 U/L (0-40) 12/20/23 10:31 ALT 47 U/L (0-41) H 12/20/23 10:31 Alkaline Phosphatase 66 U/L (40-130) 12/20/23 10:31 Troponin T Baseline 14 ng/L (0-15) 12/20/23 10:31 Troponin T 120 Minute 12.94 ng/L (0-15) 12/20/23 12:18 Delta Troponin T -1.06 ABS# (0-10) L 12/20/23 12:18 Troponin T Hi Sens 6Hr 10.50 ng/L (0-15) 12/20/23 16:36 Troponin T Hi Sens 6Hr Delta -3.50 ng/L (0-12) L 12/20/23 16:36 NT-Pro-B Natriuret Pep 1208 pg/mL (0-125) H 12/20/23 10:31 Total Protein 6.2 g/dL (6.6-8.7) L 12/20/23 10:31 Albumin 4.0 g/dL (3.5-5.2) 12/20/23 10:31 Globulin 2.2 g/dL (1.3-4.6) 12/20/23 10:31 Triglycerides 281 mg/dL (0-150) H 12/20/23 10:31 Cholesterol 183 mg/dL (0-200) 12/20/23 10:31 LDL Cholesterol, Calc 86 mg/dL (50-129) 12/20/23 10:31 HDL Cholesterol 41 mg/dL (60-100) L 12/20/23 10:31 LDL/HDL Ratio 2.10 RATIO (0.00-3.22) 12/20/23 10:31 Cholesterol/HDL Ratio 4.46 mg/dL (1.0-5.00) 12/20/23 10:31 TSH 1.92 uIU/mL (0.27-4.20) 12/20/23 10:31 Other data: The EKGon 12/20/23 showed a sinus rhythm with a normal ST Ts. Occasional supraventricular ectopics. Echocardiogram Moderate diffuse abilities left ventricular ejection fraction of 48.5%. Mildly increased left atrial size. Mild mitral annular calcification. Mild-moderate mitral valve regurgitation. Grade III/IV diastolic dysfunction (restrictive filling pattern), severely elevated filling pressures. There is no pericardial effusion. There are no intracardiac masses. No similar previous studies are available for comparison CTA of the chest No pulmonary embolism. 2. Marked LEFT heart enlargement. 3. Small bilateral pleural effusions. 4. Mild pulmonary edema and possible pneumonitis. 5. Mediastinal and hilar enlarged lymph nodes. Suspect these are reactive lymph nodes. 6. Marked hepatic steatosis. A&P Assessment and plan (1) Congestive heart failure: Etiology of the congestive heart failure is not clear. Possibility of underlying coronary ischemia causing this is a consideration. Patient may be carefully treated with IV diuretics. May start him on an ANAN inhibitor Once the heart failure is appropriately treated, may consider doing a Myocardial perfusion imaging, to evaluate for any underlying coronary ischemia. Qualifiers: Heart failure type: systolic Heart failure chronicity: chronic Qualified Code(s): I50.22 - Chronic systolic (congestive) heart failure (2) Benign hypertension: The blood pressures are stage II. Will try to optimize the antihypertensive medications be (3) Cardiomyopathy: Etiology is not clear. May do a Myocardial perfusion imaging, to further evaluate for any underlying coronary ischemia. Qualifiers: Cardiomyopathy type: unspecified Qualified Code(s): I42.9 - Cardiomyopathy, unspecified (4) Methamphetamine abuse: Cardiovascular medication were discussed. Strongly advised to quit Plan Based on the clinical progress and the results of the above, further recommendations will be made. Thank you for the opportunity to evaluate this patient and make these recommendations. Coding Level of Care Code 19106 Diagnoses Chronic systolic congestive heart failure I50.22 Heart failure type: systolic Heart failure chronicity: chronic Benign hypertension I10 Cardiomyopathy, unspecified type I42.9 Cardiomyopathy type: unspecified Methamphetamine abuse F15.10
[2023-12-20 18:31] LABS: Amphetamines Screen Urine Positive (Negative); Barbiturates Screen Urine Negative (Negative); Benzodiazepines Screen Urine Negative (Negative); Cocaine Screen Urine Negative (Negative); Opiate Screen Urine Negative (Negative); PCP Screen Urine Negative (Negative); THC Screen Urine Positive (Negative)
[2023-12-21] VITALS (12 sets, daily range): BP systolic 129–180; BP diastolic 77–107; PULSE 77–104; RESP 15–20; TEMP 36.3–36.8; O2SAT 92–98
--- NOTE | 2023-12-21 02:57 | ECG_ITS ---
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 Measurements Intervals [place] Rate: 95 P: -6 MD: 175 QRS: 45 QRSD: 93 T: 31 QT: 383 QTc: 483 Interpretive Statements SINUS RHYTHM Compared to ECG 12/20/2023 15:59:15 No significant changes Electronically Signed On 12-21-2023 21:03:29 QUALITY ASSURANCE LEAD by Ifeanyi Almendarez M.D. [id number]
[2023-12-21] MEDS: acetaminophen 325 mg Tablet 650 MG PO (03:16)
[2023-12-21 05:52] LABS: Basophils # 0.1 10^3/uL (0.0-0.1); Basophils % 0.6 %; Eosinophils # 0.1 10^3/uL (0.0-0.8); Eosinophils % 1.4 %; Hematocrit 42.5 % (37-53); Lymphocytes # 2.1 10^3/uL (0.8-4.8); Lymphocytes % 22.6 %; Mean Corpuscular HGB Conc 31.8 g/dL (30-55); Mean Corpuscular Hemoglobin 26.8 pg (27-33); Mean Corpuscular Volume 84.5 fl (82-101); Mean Platelet Volume 8.3 fL (7.4-10.4); Monocytes # 0.6 10^3/uL (0.2-0.9); Monocytes % 6.8 %; Neutrophils # 6.18 10^3/uL (1.8-7.7); Neutrophils % 68.3 %; Nucleated Red Blood Cells % 0 %; Platelet Count 185 10^3/cmm (157-399); Red Blood Count 5.03 10^6/uL (3.85-5.65); Red Cell Distribution Width 13.4 % (12.1-15.1); White Blood Count 9.06 10^3/uL (3.29-11.43)
[2023-12-21 06:14] LABS: Alanine Aminotransferase 42 U/L (0-41); Albumin Level 3.8 g/dL (3.5-5.2); Alkaline Phosphatase 71 U/L (40-130); Anion Gap 13.4 (5-19); Aspartate Amino Transferase 20 U/L (0-40); Blood Urea Nitrogen 11 mg/dL (6-20); Calcium 8.8 mg/dL (8.5-10.5); Carbon Dioxide 27 mmol/L (22-29); Chloride 103 mmol/L (98-107); Creatinine Clr Calc Pharmacy 99.5693; Glomerular Filtration Rate 76.5 mL/min (90-130); Glucose 98 mg/dL (65-115); Magnesium 2.2 mg/dL (1.7-2.3); Osmolality Calculated 289 mOsm/kg (285-295); Potassium 3.4 mmol/L (3.5-5.1); Sodium 140 mmol/L (136-145); Total Bilirubin 0.5 mg/dL (0.15-1.2); Total Protein 6.8 g/dL (6.6-8.7)
--- NOTE | 2023-12-21 11:47 | P.PN_ITS ---
Subjective 2 Subjective: Urine drug screen positive for amphetamine and marijuana. Potassium 3.4 Resting comfortably in bed. States he feels slightly better. Blood pressure 166/100 today. Vitals/I&O/Wt Last Vital Signs Temp 97.7 F 12/21/23 08:00 Pulse 93 12/21/23 08:00 Resp 15 12/21/23 08:00 BP 166/100 12/21/23 08:00 Pulse Ox 96 12/21/23 08:00 O2 Del Method Nasal Cannula 12/21/23 08:00 O2 Flow Rate 2 12/21/23 07:46 12/20/23 12/21/23 12/21/23 22:59 06:59 14:59 Intake Total 680 / 680 1200 / 1880 240 / 240 Output Total 700 / 700 700 / 1400 Balance -20 / -20 500 / 480 240 / 240 Weight last 48 hrs Weight 111.765 kg Weight 111.13 kg Weight 112.491 kg Physical Exam 2 Narrative: No acute distress Normal s1, s2, RRR Abdomen soft, non tender Trace edema b/l lower extremities Lungs clear to auscultation, no wheezes no ronchi Data 12/21/23 05:11 12/21/23 05:11 A&P Assessment and plan (1) Pulmonary edema: (2) Congestive heart failure: Qualifiers: Heart failure type: systolic Heart failure chronicity: chronic Qualified Code(s): I50.22 - Chronic systolic (congestive) heart failure (3) Elevated brain natriuretic peptide (BNP) level: Plan #New onset congestive heart failure #Shortness of breath most likely secondary to above #No other known medical problems #Amphetamine abuse ? Chest x-ray does show evidence of pulmonary edema ? BNP 1200 ? Oxygen therapy as needed ? Lasix 40 IV daily ? Stop Betablocker indefinately due to hx of amphetamine use ? Check respiratory viral panel ? Patient recently completed Levaquin ? Strict ins and outs ? Echo shows: Moderate diffuse abilities left ventricular ejection fraction of 48.5%. Mildly increased left atrial size, mild mitral annular calcification, mild moderate mitral valve regurgitation. Grade 3/4 diastolic dysfunction (restritive filling pattern), severely elevated filling pressures. There is no pericardial effusion. There are no intracardiac masses. ? Continue to monitor on telemetry. ? Troponin 12.94, 10.50. Delta -3.50 - Lipid Panel TG 281, Cholesterol 183,LDL 86, HDL 41, TSH 1.92 - Monitor electrolytes -CT chest completed no pulmonary embolism, marked left heart enlargement present. Mild pulmonary edema and possible pneumonitis present. Mediastinal and hilar enlarged lymph nodes, suspect these are reactive lymph node changes, marked hepatic steatosis. ? Urine drug screen positive amphetamine and marjuana - Cardiology consulted: patient has been recommended a stress test Full code Attestations 2 Medical Necessity Statement*: Expect > 48 hour midnight stay Diagnoses Pulmonary edema J81.1 Chronic systolic congestive heart failure I50.22 Heart failure type: systolic Heart failure chronicity: chronic Elevated brain natriuretic peptide (BNP) level R79.89
[2023-12-21] MEDS: enoxaparin 40 mg/0.4 mL Syringe SUBCUT (13:08)
[2023-12-21] MEDS: FUROsemide 10 mg/mL SDV 4mL 40 MG IVP (13:08)
--- NOTE | 2023-12-21 18:24 | PM.PN ---
Subjective Subjective: Patient is feeling much better. He seems to be able to lay flat on bed. No fever or chills. The blood pressure seems to be going up. Medications: Medication Review Details: Current Medications Acetaminophen (Acetaminophen 325 Mg Tablet) 650 mg PO Q6H PRN PRN Reason: Mild/Mod Pain Or Temp >/= 101 Last Admin: 12/21/23 03:16 Dose: 650 mg Albuterol/Ipratropium (Ipratropium-Albuterol 3 Ml Neb) 3 ml INHALATION Q6H PRN PRN Reason: SHORTNESS OF BREATH Enoxaparin Sodium (Enoxaparin 40 Mg/0.4 Ml Syringe) 40 mg SUBCUT Q24H [facility] Last Admin: 12/21/23 13:08 Dose: 40 mg Furosemide (Furosemide 10 Mg/Ml Sdv 4ml) 40 mg IVP Q24H [facility] Last Admin: 12/21/23 13:08 Dose: 40 mg Ondansetron HCl (Ondansetron 2 Mg/Ml Sdv 2 Ml) 4 mg IVP Q8H PRN PRN Reason: vomiting, or N/V if npo Vitals/I&O/Wt Last Vital Signs Temp 98.3 F 12/21/23 16:00 Pulse 97 12/21/23 16:00 Resp 16 12/21/23 16:00 BP 152/102 12/21/23 16:00 Pulse Ox 96 12/21/23 16:00 O2 Del Method Nasal Cannula 12/21/23 16:00 O2 Flow Rate 2 12/21/23 07:46 12/21/23 12/21/23 12/21/23 06:59 14:59 22:59 Intake Total 1200 / 1880 480 / 480 240 / 720 Output Total 700 / 1400 1850 / 1850 1300 / 3150 Balance 500 / 480 -1370 / -1370 -1060 / -2430 Weight last 48 hrs Weight 246 lb 6.4 oz Weight 245 lb Weight 248 lb Physical Exam Narrative: GENERAL: The patient is alert and oriented times three. Not in any acute distress. HEENT: No significant pallor, icterus or lymphadenopathy.Oral cavity: There are no mucous membrane lesions. NECK: Trachea appears to be central. No masses noted. No JVD or thyromegaly appreciated. RESPIRATORY: Chest is symmetrical. No intercostals muscle retraction or any accessory muscle activation. There is no chest wall tenderness. Breath sounds are heard bilaterally. No rales or rhonchi heard. No evidence of any consolidation. BREASTS: Deferred. HEART: The heart sounds are normal. No S3 or S4. No significant murmurs. No pericardial rub ABDOMEN: No vessel pulsations or distention. No tenderness. No organomegaly appreciated. Bowel sounds are normally heard. : Deferred. RECTAL: Deferred. LYMPHATIC: No lymphadenopathy noted in the neck. EXTREMITIES: No edema or cyanosis. No clubbing. MUSCULOSKELETAL: No acute joint deformities or swelling SKIN: There are no significant rashes or ecchymosis NEUROPSYCHIATRIC: The patient is alert and oriented x3. Appears to be in a good mood. No tremors or rigidity noted. Data 12/21/23 05:11 12/21/23 05:11 Other Labs: Laboratory Last Values WBC 9.06 10^3/uL (3.29-11.43) 12/21/23 05:11 RBC 5.03 10^6/uL (3.85-5.65) 12/21/23 05:11 Hgb 13.50 g/dL (11.27-16.99) 12/21/23 05:11 Hct 42.5 % (37-53) 12/21/23 05:11 MCV 84.5 fl (82-101) 12/21/23 05:11 MCH 26.8 pg (27-33) L 12/21/23 05:11 MCHC 31.8 g/dL (30-55) 12/21/23 05:11 RDW 13.4 % (12.1-15.1) 12/21/23 05:11 Plt Count 185 10^3/cmm (157-399) 12/21/23 05:11 MPV 8.3 fL (7.4-10.4) 12/21/23 05:11 Neut % (Auto) 68.3 % 12/21/23 05:11 Lymph % (Auto) 22.6 % 12/21/23 05:11 [place] % (Auto) 6.8 % 12/21/23 05:11 Eos % (Auto) 1.4 % 12/21/23 05:11 Baso % (Auto) 0.6 % 12/21/23 05:11 Neut # (Auto) 6.18 10^3/uL (1.8-7.7) 12/21/23 05:11 Lymph # (Auto) 2.1 10^3/uL (0.8-4.8) 12/21/23 05:11 [place] # (Auto) 0.6 10^3/uL (0.2-0.9) 12/21/23 05:11 Eos # (Auto) 0.1 10^3/uL (0.0-0.8) 12/21/23 05:11 Baso # (Auto) 0.1 10^3/uL (0.0-0.1) 12/21/23 05:11 Nucleated RBC % (auto) 0 % 12/21/23 05:11 Nucleated RBCs # 0.0 /100WBC 12/21/23 05:11 D-Dimer 0.99 ug/mLFEU (0-0.59) H 12/20/23 10:31 Sodium 140 mmol/L (136-145) 12/21/23 05:11 Potassium 3.4 mmol/L (3.5-5.1) L 12/21/23 05:11 Chloride 103 mmol/L (98-107) 12/21/23 05:11 Carbon Dioxide 27 mmol/L (22-29) 12/21/23 05:11 Anion Gap 13.4 (5-19) 12/21/23 05:11 BUN 11 mg/dL (6-20) 12/21/23 05:11 Creatinine 1.0 mg/dL (0.7-1.2) 12/21/23 05:11 GFR Calculation 76.5 mL/min (90-130) L 12/21/23 05:11 Glucose 98 mg/dL (65-115) 12/21/23 05:11 Estimat Average Glucose 123 12/20/23 12:28 Hemoglobin A1c 5.9 % (4.0-6.0) 12/20/23 12:28 Calculated Osmolality 289 mOsm/kg (285-295) 12/21/23 05:11 Calcium 8.8 mg/dL (8.5-10.5) 12/21/23 05:11 Magnesium 2.2 mg/dL (1.7-2.3) 12/21/23 05:11 Total Bilirubin 0.5 mg/dL (0.15-1.2) 12/21/23 05:11 AST 20 U/L (0-40) 12/21/23 05:11 ALT 42 U/L (0-41) H 12/21/23 05:11 Alkaline Phosphatase 71 U/L (40-130) 12/21/23 05:11 Troponin T Baseline 14 ng/L (0-15) 12/20/23 10:31 Troponin T 120 Minute 12.94 ng/L (0-15) 12/20/23 12:18 Delta Troponin T -1.06 ABS# (0-10) L 12/20/23 12:18 Troponin T Hi Sens 6Hr 10.50 ng/L (0-15) 12/20/23 16:36 Troponin T Hi Sens 6Hr Delta -3.50 ng/L (0-12) L 12/20/23 16:36 NT-Pro-B Natriuret Pep 1208 pg/mL (0-125) H 12/20/23 10:31 Total Protein 6.8 g/dL (6.6-8.7) 12/21/23 05:11 Albumin 3.8 g/dL (3.5-5.2) 12/21/23 05:11 Globulin 3.0 g/dL (1.3-4.6) 12/21/23 05:11 Triglycerides 281 mg/dL (0-150) H 12/20/23 10:31 Cholesterol 183 mg/dL (0-200) 12/20/23 10:31 LDL Cholesterol, Calc 86 mg/dL (50-129) 12/20/23 10:31 HDL Cholesterol 41 mg/dL (60-100) L 12/20/23 10:31 LDL/HDL Ratio 2.10 RATIO (0.00-3.22) 12/20/23 10:31 Cholesterol/HDL Ratio 4.46 mg/dL (1.0-5.00) 12/20/23 10:31 TSH 1.92 uIU/mL (0.27-4.20) 12/20/23 10:31 Urine Opiates Screen Negative ng/mL (Negative) 12/20/23 17:40 Ur Barbiturates Screen Negative ng/mL (Negative) 12/20/23 17:40 Ur Phencyclidine Scrn Negative ng/mL (Negative) 12/20/23 17:40 Ur Amphetamines Screen Positive ng/mL (Negative) H 12/20/23 17:40 U Benzodiazepines Scrn Negative ng/mL (Negative) 12/20/23 17:40 Urine Cocaine Screen Negative ng/mL (Negative) 12/20/23 17:40 U Marijuana (THC) Screen Positive ng/mL (Negative) H 12/20/23 17:40 Other data: Echocardiogram from 12/20/2023 Moderate diffuse abilities left ventricular ejection fraction of 48.5%. Mildly increased left atrial size. Mild mitral annular calcification. Mild-moderate mitral valve regurgitation. Grade III/IV diastolic dysfunction (restrictive filling pattern), severely elevated filling pressures. There is no pericardial effusion. There are no intracardiac masses. No similar previous studies are available for comparison A&P Assessment and plan (1) Congestive heart failure: The heart failure seems to be getting compensated. I may [place] start him on Entresto 1 tablet p.o. twice daily. IV Lasix may be changed to p.o. Qualifiers: Heart failure chronicity: chronic Heart failure type: systolic Qualified Code(s): I50.22 - Chronic systolic (congestive) heart failure (2) Benign hypertension: The blood pressures are stage II. Will try to optimize the antihypertensive medications be (3) Cardiomyopathy: Etiology is not clear. May do a Myocardial perfusion imaging, to further evaluate for any underlying coronary ischemia. This may be scheduled for tomorrow-will be scheduled for Lexiscan/sestamibi/sestamibi stress test Qualifiers: Cardiomyopathy type: unspecified Qualified Code(s): I42.9 - Cardiomyopathy, unspecified (4) Methamphetamine abuse: Cardiovascular implications were discussed. Strongly advised to quit Plan Based on the results of the above, further management decisions will be made Attestations Medical Necessity Statement*: Patient requires continued hospital stay for close monitoring and further management Coding Level of Care Code 22770 Diagnoses Chronic systolic congestive heart failure I50.22 Heart failure chronicity: chronic Heart failure type: systolic Benign hypertension I10 Cardiomyopathy, unspecified type I42.9 Cardiomyopathy type: unspecified Methamphetamine abuse F15.10
[2023-12-21] MEDS: losartan 50 mg Tablet 25 MG PO (21:09)
[2023-12-21] MEDS: isosorbide mononitrate ER 30 mg Tablet PO (21:09)
--- NOTE | 2023-12-21 21:39 | ECG_ITS ---
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 Interpretive Statements NAME OF STUDY: LEXISCAN SESTAMIBI STRESS TEST INDICATION: CHF PROCEDURE: At the baseline, the EKG revealed normal sinus rhythm with a poor R wave progression. Normal ST Ts.. The baseline heart was 90 bpm with a blood pressue of 140/85 mm of Hg Lexiscan was infused over a period of 20 seconds. A total of 0.4 milligrams of Lexiscan was infused. The stress phase was continued for a total of 5 minutes. Heart rate at the end of the stress phase was 97 bpm with a blood pressure 126/79 mm of Hg. The EKG at the peak infusion revealed no significant changes. Sestamibi was injected 20 seconds after the Lexiscan infusion. Heart rate at the end of the recovery phase was 95 bpm with a blood pressure of 131/81 mm of Hg. CONCLUSION: 1. No significant EKG changes with the LexiScan infusion 2. No LexiScan induced chest pain or cardiac arrhythmia 3. Normal blood pressure and heart rate response 4. Sestamibi/sestamibi perfusion scan pending; see separate report. Electronically Signed On 12-25-2023 9:25:02 STIFF LEG DERRICK OPERATOR by Ifeanyi Almendarez M.D. [id number]
[2023-12-21] MEDS: metoprolol tartrate 25 mg Tablet PO (22:06)
[2023-12-22 04:00] VITALS: BP 143/74; PULSE 87; RESP 20; TEMP 36.4; O2SAT 98
[2023-12-22 04:22] LABS: Basophils % 0.4 %; Eosinophils # 0.1 10^3/uL (0.0-0.8); Eosinophils % 1.4 %; Hematocrit 43.3 % (37-53); Lymphocytes # 1.8 10^3/uL (0.8-4.8); Lymphocytes % 22.3 %; Mean Corpuscular HGB Conc 31.9 g/dL (30-55); Mean Corpuscular Hemoglobin 26.9 pg (27-33); Mean Corpuscular Volume 84.4 fl (82-101); Mean Platelet Volume 8.1 fL (7.4-10.4); Monocytes # 0.6 10^3/uL (0.2-0.9); Monocytes % 7.8 %; Neutrophils # 5.46 10^3/uL (1.8-7.7); Neutrophils % 67.7 %; Nucleated Red Blood Cells % 0 %; Platelet Count 199 10^3/cmm (157-399); Red Blood Count 5.13 10^6/uL (3.85-5.65); White Blood Count 8.06 10^3/uL (3.29-11.43)
[2023-12-22 04:42] LABS: Anion Gap 14.2 (5-19); Blood Urea Nitrogen 16 mg/dL (6-20); Calcium 8.6 mg/dL (8.5-10.5); Carbon Dioxide 29 mmol/L (22-29); Chloride 103 mmol/L (98-107); Creatinine Clr Calc Pharmacy 90.5175; Glomerular Filtration Rate 68.5 mL/min (90-130); Glucose 107 mg/dL (65-115); Magnesium 2.3 mg/dL (1.7-2.3); Osmolality Calculated 296 mOsm/kg (285-295); Potassium 4.2 mmol/L (3.5-5.1); Sodium 142 mmol/L (136-145)
[2023-12-22] MEDS: acetaminophen 325 mg Tablet 650 MG PO ×2 (04:56→11:28)
[2023-12-22 06:00] VITALS: PULSE 77
[2023-12-22] MEDS: regadenoson 0.4 Mg/5 ml Syringe 0.400000000000000022 MG IVP (07:22)
[2023-12-22 08:53] VITALS: BP 136/80
[2023-12-22] MEDS: metoprolol tartrate 25 mg Tablet PO (08:53)
[2023-12-22] MEDS: losartan 50 mg Tablet 25 MG PO (08:53)
[2023-12-22] MEDS: isosorbide mononitrate ER 30 mg Tablet PO (08:53)
[2023-12-22 09:04] VITALS: BP 131/85; PULSE 95
--- NOTE | 2023-12-22 09:48 | PC.CHAP ---
Pastoral Care Encounter/Spiritual Assessment Type of Contact [x] Declined title curator visit [] Patient/Family/Request visit [] Outpatient visit [] Follow-up visit [] Physician referral [] Code/Alert [] Routine visit [] Staff referral [] Actively dying [] Patient sleeping [] Family support [] [] Out of room [] Palliative care [] [] Receiving care in room [] Pre-surgical visit [] Trauma [] Long length of stay [] ICU visit [] Other: Relational/Emotional Strength [] Patient feels connected with others/family/visitors/staff [] Distress [] Loneliness/isolation [] Abandonment Spirituality of Patient [] Person of Judith [] Attends Jain of their Judith [] Believes in Prayer [] Reads Bible or Anglican materials [] There are Spiritual issues to be addressed Cooler Supervisor Interventions [] Prayer [] Active listening [] Non-anxious presence [] Spiritual/emotional support [] Crisis/trauma care [] Spiritual counseling [] Bereavement support [] Provided bereavement packet [] Provided Bible/devotional materials [] Provided toy/stuffed animal, coloring book to patient or family member [] Provided Communion [] Anointing/[place] [] Salvation [] Completed spiritual assessment [] Other: Impact on Illness or Injury [] Angry [] Fearful [] Anxious [] Often cries [] Exhaustion [] Unable to work [] Unable to attend buddhist [] Unable to walk/stand [] Unable to read [] Unable to drive [] Unable to eat/drink [] Unable to sleep [] Unable to be with family [] Patient intubated [] Other: Summary Time spent with patient
[2023-12-22 10:00] VITALS: PULSE 94; RESP 16; O2SAT 92
[2023-12-22 11:52] VITALS: BP 126/77; PULSE 83; RESP 15; TEMP 36.4; O2SAT 92
--- NOTE | 2023-12-22 12:15 | P.PN_ITS ---
Subjective 2 Subjective: Patient is feeling much better. He had the Myocardial perfusion imaging today. He was found to have no evidence of ischemia. Features are suggestive of a nonischemic cardiomyopathy. Medications: Medication Review Details: Current Medications Acetaminophen (Acetaminophen 325 Mg Tablet) 650 mg PO Q6H PRN PRN Reason: Mild/Mod Pain Or Temp >/= 101 Last Admin: 12/22/23 11:28 Dose: 650 mg Albuterol/Ipratropium (Ipratropium-Albuterol 3 Ml Neb) 3 ml INHALATION Q6H PRN PRN Reason: SHORTNESS OF BREATH Aminophylline (Aminophylline 25 Mg/Ml Sdv 10 Ml) 25 mg IVP Q2M PRN PRN Reason: see dose instructions Stop: 12/23/23 07:06 Carvedilol (Carvedilol 3.125 Mg Tablet) 3.125 mg PO BID [facility] Enoxaparin Sodium (Enoxaparin 40 Mg/0.4 Ml Syringe) 40 mg SUBCUT Q24H [facility] Last Admin: 12/21/23 13:08 Dose: 40 mg Furosemide (Furosemide 10 Mg/Ml Sdv 4ml) 40 mg IVP Q24H [facility] Last Admin: 12/21/23 13:08 Dose: 40 mg Isosorbide Mononitrate (Isosorbide Mononitrate Er 30 Mg Tablet) 30 mg PO DAILY [facility] Last Admin: 12/22/23 08:53 Dose: 30 mg Losartan Potassium (Losartan 50 Mg Tablet) 25 mg PO DAILY [facility] Last Admin: 12/22/23 08:53 Dose: 25 mg Nitroglycerin (Nitroglycerin 0.4 Mg Sublingual Tablet) 0.4 mg SUBLINGUAL Q5M PRN PRN Reason: CHEST PAIN Stop: 12/23/23 07:06 Ondansetron HCl (Ondansetron 2 Mg/Ml Sdv 2 Ml) 4 mg IVP Q8H PRN PRN Reason: vomiting, or N/V if npo Ondansetron HCl (Ondansetron 2 Mg/Ml Sdv 2 Ml) 4 mg IVP Q2M PRN PRN Reason: NAUSEA Vitals/I&O/Wt Last Vital Signs Temp 97.6 F 12/22/23 11:52 Pulse 83 12/22/23 11:52 Resp 15 12/22/23 11:52 BP 126/77 12/22/23 11:52 Pulse Ox 92 12/22/23 11:52 O2 Del Method Room Air 12/22/23 11:52 O2 Flow Rate 2 12/21/23 20:00 12/21/23 12/22/23 12/22/23 22:59 06:59 14:59 Intake Total 840 / 1320 100 / 1420 960 / 960 Output Total 1300 / 3150 350 / 3500 Balance -460 / -1830 -250 / -2080 960 / 960 Weight last 48 hrs Weight 246 lb 6.4 oz Weight 245 lb Physical Exam 2 Narrative: GENERAL: The patient is alert and oriented times three. Not in any acute distress. HEENT: No significant pallor, icterus or lymphadenopathy.Oral cavity: There are no mucous membrane lesions. NECK: Trachea appears to be central. No masses noted. No JVD or thyromegaly appreciated. RESPIRATORY: Chest is symmetrical. No intercostals muscle retraction or any accessory muscle activation. There is no chest wall tenderness. Breath sounds are heard bilaterally. No rales or rhonchi heard. No evidence of any consolidation. BREASTS: Deferred. HEART: The heart sounds are normal. No S3 or S4. No significant murmurs. No pericardial rub ABDOMEN: No vessel pulsations or distention. No tenderness. No organomegaly appreciated. Bowel sounds are normally heard. : Deferred. RECTAL: Deferred. LYMPHATIC: No lymphadenopathy noted in the neck. EXTREMITIES: No edema or cyanosis. No clubbing. MUSCULOSKELETAL: No acute joint deformities or swelling SKIN: There are no significant rashes or ecchymosis NEUROPSYCHIATRIC: The patient is alert and oriented x3. Appears to be in a good mood. No tremors or rigidity noted. Data 12/22/23 03:29 12/22/23 03:29 Other Labs: Laboratory Last Values WBC 8.06 10^3/uL (3.29-11.43) 12/22/23 03: RBC 5.13 10^6/uL (3.85-5.65) 12/22/23 03:29 Hgb 13.80 g/dL (11.27-16.99) 12/22/23 03:29 Hct 43.3 % (37-53) 12/22/23 03:29 MCV 84.4 fl (82-101) 12/22/23 03:29 MCH 26.9 pg (27-33) L 12/22/23 03: MCHC 31.9 g/dL (30-55) 12/22/23 03: RDW 13.0 % (12.1-15.1) 12/22/23 03: Plt Count 199 10^3/cmm (157-399) 12/22/23 03: MPV 8.1 fL (7.4-10.4) 12/22/23 03: Neut % (Auto) 67.7 % 12/22/23 03: Lymph % (Auto) 22.3 % 12/22/23 03: [place] % (Auto) 7.8 % 12/22/23 03: Eos % (Auto) 1.4 % 12/22/23 03: Baso % (Auto) 0.4 % 12/22/23 03: Neut # (Auto) 5.46 10^3/uL (1.8-7.7) 12/22/23 03: Lymph # (Auto) 1.8 10^3/uL (0.8-4.8) 12/22/23 03: [place] # (Auto) 0.6 10^3/uL (0.2-0.9) 12/22/23 03: Eos # (Auto) 0.1 10^3/uL (0.0-0.8) 12/22/23 03: Baso # (Auto) 0.0 10^3/uL (0.0-0.1) 12/22/23 03: Nucleated RBC % (auto) 0 % 12/22/23 03: Nucleated RBCs # 0.0 /100WBC 12/22/23 03: D-Dimer 0.99 ug/mLFEU (0-0.59) H 12/20/23 10:31 Sodium 142 mmol/L (136-145) 12/22/23 03: Potassium 4.2 mmol/L (3.5-5.1) 12/22/23 03: Chloride 103 mmol/L (98-107) 12/22/23 03: Carbon Dioxide 29 mmol/L (22-29) 12/22/23 03: Anion Gap 14.2 (5-19) 12/22/23 03:29 BUN 16 mg/dL (6-20) 12/22/23 03:29 Creatinine 1.1 mg/dL (0.7-1.2) 12/22/23 03:29 GFR Calculation 68.5 mL/min (90-130) L 12/22/23 03:29 Glucose 107 mg/dL (65-115) 12/22/23 03: Estimat Average Glucose 123 12/20/23 12:28 Hemoglobin A1c 5.9 % (4.0-6.0) 12/20/23 12:28 Calculated Osmolality 296 mOsm/kg (285-295) H 12/22/23 03: Calcium 8.6 mg/dL (8.5-10.5) 12/22/23 03: Magnesium 2.3 mg/dL (1.7-2.3) 12/22/23 03: Total Bilirubin 0.5 mg/dL (0.15-1.2) 12/21/23 05:11 AST 20 U/L (0-40) 12/21/23 05:11 ALT 42 U/L (0-41) H 12/21/23 05:11 Alkaline Phosphatase 71 U/L (40-130) 12/21/23 05:11 Troponin T Baseline 14 ng/L (0-15) 12/20/23 10:31 Troponin T 120 Minute 12.94 ng/L (0-15) 12/20/23 12:18 Delta Troponin T -1.06 ABS# (0-10) L 12/20/23 12:18 Troponin T Hi Sens 6Hr 10.50 ng/L (0-15) 12/20/23 16:36 Troponin T Hi Sens 6Hr Delta -3.50 ng/L (0-12) L 12/20/23 16:36 NT-Pro-B Natriuret Pep 1208 pg/mL (0-125) H 12/20/23 10:31 Total Protein 6.8 g/dL (6.6-8.7) 12/21/23 05:11 Albumin 3.8 g/dL (3.5-5.2) 12/21/23 05:11 Globulin 3.0 g/dL (1.3-4.6) 12/21/23 05:11 Triglycerides 281 mg/dL (0-150) H 12/20/23 10:31 Cholesterol 183 mg/dL (0-200) 12/20/23 10:31 LDL Cholesterol, Calc 86 mg/dL (50-129) 12/20/23 10:31 HDL Cholesterol 41 mg/dL (60-100) L 12/20/23 10:31 LDL/HDL Ratio 2.10 RATIO (0.00-3.22) 12/20/23 10:31 Cholesterol/HDL Ratio 4.46 mg/dL (1.0-5.00) 12/20/23 10:31 TSH 1.92 uIU/mL (0.27-4.20) 12/20/23 10:31 Urine Opiates Screen Negative ng/mL (Negative) 12/20/23 17:40 Ur Barbiturates Screen Negative ng/mL (Negative) 12/20/23 17:40 Ur Phencyclidine Scrn Negative ng/mL (Negative) 12/20/23 17:40 Ur Amphetamines Screen Positive ng/mL (Negative) H 12/20/23 17:40 U Benzodiazepines Scrn Negative ng/mL (Negative) 12/20/23 17:40 Urine Cocaine Screen Negative ng/mL (Negative) 12/20/23 17:40 U Marijuana (THC) Screen Positive ng/mL (Negative) H 12/20/23 17:40 A&P Assessment and plan (1) Congestive heart failure: The heart failure seems to be getting compensated. I may start the patient on Lasix 40 mg p.o. daily and potassium 10 mill equivalent p.o. daily Qualifiers: Heart failure type: systolic Heart failure chronicity: chronic Qualified Code(s): I50.22 - Chronic systolic (congestive) heart failure (2) Benign hypertension: Currently the patient is normotensive. May continue on the current medications. (3) Cardiomyopathy: The Myocardial perfusion imaging results are discussed with the patient. The features are consistent with a nonischemic form of cardiomyopathy. Qualifiers: Cardiomyopathy type: unspecified Qualified Code(s): I42.9 - Cardiomyopathy, unspecified (4) Methamphetamine abuse: Cardiovascular implications were discussed. Strongly advised to quit. Plan He is a patient continues to remain stable, may be discharged home today from a cardiac standpoint. Please make an appointment to be seen in the office in 1 week by the nurse practitioner. I may see him in the office in 1 month For the time being, the patient may be kept on the losartan, carvedilol, Lasix and potassium in addition to the other medications Attestations 2 Medical Necessity Statement*: Disposition as per the primary Coding Level of Care Code Acute Code for g Fwd Diagnoses Chronic systolic congestive heart failure I50.22 Heart failure type: systolic Heart failure chronicity: chronic Benign hypertension I10 Cardiomyopathy, unspecified type I42.9 Cardiomyopathy type: unspecified Methamphetamine abuse F15.10
--- NOTE | 2023-12-22 12:45 | P.DS_ITS ---
Discharge Providers Date of Admission: 12/20/23 13:17 Date of Discharge: December 22, 2023 Attending Provider at Admission: Elba Mccormick MD Attending Provider at Discharge: Elba Mccormick MD Primary Care Provider: Traci Hoskins DO Diagnoses at Discharge Discharge Diagnosis (1) Congestive heart failure: Status: Acute Qualifiers: Heart failure chronicity: chronic Heart failure type: systolic Qualified Code(s): I50.22 - Chronic systolic (congestive) heart failure (2) Benign hypertension: Status: Acute (3) Cardiomyopathy: Status: Acute Qualifiers: Cardiomyopathy type: unspecified Qualified Code(s): I42.9 - Cardiomyopathy, unspecified (4) Methamphetamine abuse: Status: Acute Reason for Visit Reason for Visit: sob Hospital Course Hospital Course Admitted for CHF which was apparently new onset. He was diuresed with Lasix during hospital stay. Blood pressure initially elevated however that improved. Patient was methamphetamine positive. Cardiology was consulted. Echo showed EF of 48.5%. Grade 3 x 4 diastolic dysfunction. Patient underwent a stress test which was consistent with nonischemic cardiomyopathy. Patient was discharged home in stable condition and asked to follow-up with cardiology as outpatient. Medication reconciliation done with statuary painter at discharge. Physical Exam Narrative: No acute distress Normal s1, s2, RRR Abdomen soft, non tender Trace edema b/l lower extremities Lungs clear to auscultation, no wheezes no ronchi Discharge Data Studies Completed and Pending Completed Studies During Hospitalization Category Date Time Status CTA chest [CT angio chest PE protcl [id number]] Stat Cat Scan 12/20/23 10:30 Completed Cardiac Stress Test MIBI [Sestamibi Stress Test Request Exams 12/21/23 21:39 Draft ] Routine XR chest 1V portable [id number] Stat Exams 12/20/23 10:12 Completed NM lyssa perf SPECT r/s* [id number] Routine Nuc Med 12/22/23 21:40 Completed CV. echo complete* [id number] Stat Ultrasound 12/20/23 13:13 Completed Laboratory Results WBC 8.06 10^3/uL (3.29-11.43) 12/22/23 03:29 RBC 5.13 10^6/uL (3.85-5.65) 12/22/23 03:29 Hgb 13.80 g/dL (11.27-16.99) 12/22/23 03:29 Hct 43.3 % (37-53) 12/22/23 03: MCV 84.4 fl (82-101) 12/22/23 03: MCH 26.9 pg (27-33) L 12/22/23 03: MCHC 31.9 g/dL (30-55) 12/22/23 03: RDW 13.0 % (12.1-15.1) 12/22/23 03: Plt Count 199 10^3/cmm (157-399) 12/22/23 03: MPV 8.1 fL (7.4-10.4) 12/22/23 03: Neut % (Auto) 67.7 % 12/22/23 03: Lymph % (Auto) 22.3 % 12/22/23 03: [place] % (Auto) 7.8 % 12/22/23 03: Eos % (Auto) 1.4 % 12/22/23 03: Baso % (Auto) 0.4 % 12/22/23 03: Neut # (Auto) 5.46 10^3/uL (1.8-7.7) 12/22/23 03: Lymph # (Auto) 1.8 10^3/uL (0.8-4.8) 12/22/23 03: [place] # (Auto) 0.6 10^3/uL (0.2-0.9) 12/22/23 03: Eos # (Auto) 0.1 10^3/uL (0.0-0.8) 12/22/23 03: Baso # (Auto) 0.0 10^3/uL (0.0-0.1) 12/22/23 03: Nucleated RBC % (auto) 0 % 12/22/23 03: Nucleated RBCs # 0.0 /100WBC 12/22/23 03: D-Dimer 0.99 ug/mLFEU (0-0.59) H 12/20/23 10:31 Sodium 142 mmol/L (136-145) 12/22/23 03:29 Potassium 4.2 mmol/L (3.5-5.1) 12/22/23 03: Chloride 103 mmol/L (98-107) 12/22/23 03:29 Carbon Dioxide 29 mmol/L (22-29) 12/22/23 03:29 Anion Gap 14.2 (5-19) 12/22/23 03:29 BUN 16 mg/dL (6-20) 12/22/23 03:29 Creatinine 1.1 mg/dL (0.7-1.2) 12/22/23 03:29 GFR Calculation 68.5 mL/min (90-130) L 12/22/23 03:29 Glucose 107 mg/dL (65-115) 12/22/23 03:29 Estimat Average Glucose 123 12/20/23 12:28 Hemoglobin A1c 5.9 % (4.0-6.0) 12/20/23 12:28 Calculated Osmolality 296 mOsm/kg (285-295) H 12/22/23 03:29 Calcium 8.6 mg/dL (8.5-10.5) 12/22/23 03: Magnesium 2.3 mg/dL (1.7-2.3) 12/22/23 03:29 Total Bilirubin 0.5 mg/dL (0.15-1.2) 12/21/23 05:11 AST 20 U/L (0-40) 12/21/23 05:11 ALT 42 U/L (0-41) H 12/21/23 05:11 Alkaline Phosphatase 71 U/L (40-130) 12/21/23 05:11 Troponin T Baseline 14 ng/L (0-15) 12/20/23 10:31 Troponin T 120 Minute 12.94 ng/L (0-15) 12/20/23 12:18 Delta Troponin T -1.06 ABS# (0-10) L 12/20/23 12:18 Troponin T Hi Sens 6Hr 10.50 ng/L (0-15) 12/20/23 16:36 Troponin T Hi Sens 6Hr Delta -3.50 ng/L (0-12) L 12/20/23 16:36 NT-Pro-B Natriuret Pep 1208 pg/mL (0-125) H 12/20/23 10:31 Total Protein 6.8 g/dL (6.6-8.7) 12/21/23 05:11 Albumin 3.8 g/dL (3.5-5.2) 12/21/23 05:11 Globulin 3.0 g/dL (1.3-4.6) 12/21/23 05:11 Triglycerides 281 mg/dL (0-150) H 12/20/23 10:31 Cholesterol 183 mg/dL (0-200) 12/20/23 10:31 LDL Cholesterol, Calc 86 mg/dL (50-129) 12/20/23 10:31 HDL Cholesterol 41 mg/dL (60-100) L 12/20/23 10:31 LDL/HDL Ratio 2.10 RATIO (0.00-3.22) 12/20/23 10:31 Cholesterol/HDL Ratio 4.46 mg/dL (1.0-5.00) 12/20/23 10:31 TSH 1.92 uIU/mL (0.27-4.20) 12/20/23 10:31 Urine Opiates Screen Negative ng/mL (Negative) 12/20/23 17:40 Ur Barbiturates Screen Negative ng/mL (Negative) 12/20/23 17:40 Ur Phencyclidine Scrn Negative ng/mL (Negative) 12/20/23 17:40 Ur Amphetamines Screen Positive ng/mL (Negative) H 12/20/23 17:40 U Benzodiazepines Scrn Negative ng/mL (Negative) 12/20/23 17:40 Urine Cocaine Screen Negative ng/mL (Negative) 12/20/23 17:40 U Marijuana (THC) Screen Positive ng/mL (Negative) H 12/20/23 17:40 Vitals Last Vital Signs Temp 97.6 F 12/22/23 11:52 Pulse 83 12/22/23 11:52 Resp 15 12/22/23 11:52 BP 126/77 12/22/23 11:52 Pulse Ox 92 12/22/23 11:52 O2 Del Method Room Air 12/22/23 11:52 O2 Flow Rate 2 12/21/23 20:00 Discharge Plan Discharge Patient Disposition: Home Condition: Stable Prescriptions: New losartan 50 mg Tablet 25 mg PO DAILY Qty: 30 0RF isosorbide mononitrate 30 mg Tablet Extended Release 24 Hr 30 mg PO DAILY Qty: 30 0RF carvedilol 3.125 mg Tablet 3.125 mg PO BID Qty: 60 0RF Continued Symbicort 160-4.5 mcg/actuation HFA aerosol inhaler 2 puff INHALATION BID Discontinued furosemide 20 mg tablet 20 mg PO DAILY metoprolol tartrate 25 mg tablet 25 mg PO BID hydrochlorothiazide 12.5 mg tablet 12.5 mg PO DAILY No Action furosemide 40 mg tablet 80 mg PO DAILY@0800 Qty: 14 0RF potassium chloride 20 mEq tablet extended release 20 meq PO DAILY Qty: 14 0RF Discharge Orders: Discharge Order (Routine); Ordered 12/22/23 Ordered By: Elba Mccormick Referrals: Ifeanyi Almendarez MD [Physician] - 1 month (We have notified your physician's clinic of the need for a follow-up appointment to be scheduled. If you have not heard from them within the next 2 business days, please call them directly. ) Kylee Rizvi FNP [Nurse Practitioner] - 4-7 days (We have notified your physician's clinic of the need for a follow-up appointment to be scheduled. If you have not heard from them within the next 2 business days, please call them directly. ) Joel Ponce MD [Physician] - 12/26/23 9:15 am Discharge Diet: Cardiac Discharge Activity: Resume usual activity Patient Instructions: Furosemide (By mouth), Losartan (By mouth), Isosorbide Mo nonitrate (By mouth), Carvedilol (By mouth), Heart Failure (DC), CHF Stoplight, Opioid Safety Discharge Attestations Time Spent in Discharge Care*: greater than 30 min Quality Metrics Clinical Quality Measures [ No reported AMI, CVA or VTE this stay] Coding Level of Care Code Acute Code for g Fwd Diagnoses Chronic systolic congestive heart failure I50.22 Heart failure chronicity: chronic Heart failure type: systolic Benign hypertension I10 Cardiomyopathy, unspecified type I42.9 Cardiomyopathy type: unspecified Methamphetamine abuse F15.10
--- NOTE | 2023-12-22 21:40 | NMCV_ITS ---
NM lyssa perf SPECT r/s* [id number] Estrada Bangura Age: 58 Gender: M : 1965 Exam Date: 12/22/2023 06:24 Ordering Phys: Ifeanyi Almendarez MD ([email or web address]) Technologist: BETH Gaxiola Exam Location: [facility] Indications: CHEST PAIN STRESS TEST [facility] IMAGE PROTOCOL Rest/Stress 1 Lexiscan Day Radiopharmaceutical Dose (mCi) Administration Site Administered by Rest: Tc-99m 10.9 IV BETH Powell Sestamibi Stress:Tc-99m 32.9 IV BETH Powell Sestamibi Rest: 22-Dec-2023 60 Discovery 630 Stress: 22-Dec-2023 30 Discovery 630 0.4mg Lexiscan. Supine position only as patient was unable to lay prone. SPECT RESULTS Technical Quality: Excellent Raw Data Analysis: Normal Image Corrections: No attenuation or motion correction applied Summed Stress Score: 0 Summed Rest Score: 3 Summed Difference Score: 0 PERFUSION FINDINGS patchy areas of slightly decreased tracer uptake in the inferior wall and the apical regions with no significant reversibility. FUNCTIONAL RESULTS (calculated via Gated SPECT) Stress Image LV EF (%): 33 Stress EDV (mL):148 TID: 0.92 Stress ESV (mL):99 FUNCTIONAL FINDINGS: Segmental wall motion analysis revealed diffuse hypokinesia of the left ventricle IMPRESSIONS 1. Myocardial perfusion imaging revealing patchy areas of slightly decreased persistent tracer uptake in the inferior wall and apical regions, most likely represent a transient artifacts. 2. Moderately diminished LV ejection fraction of 33%. 3. Left-ventricular wall motion analysis revealed diffuse hypokinesia of the left ventricle. 4. Mildly dilated LV cavity with an end-systolic volume of 99 ml. Low probability for coronary ischemia, based on the above findings. The above features may suggest some form of nonischemic cardiomyopathy No similar previous studies are available for comparison Dr Ifeanyi Almendarez MD [facility] (Electronically Signed) Final Date: 22 December 2023 09:53 S
== END 2023-12-22 14:06 | disposition home or self-care (01) | DRG 291 ==
LOC: ER 12:58 → MEDSURG 13:17
PROVIDERS: Admitting Provider Internal Medicine; Emergency Provider Emergency Medicine; PCP Family Medicine; Visit Provider Internal Medicine
DX: I11.0 Hypertensive heart disease with heart failure (principal); I50.21 Acute systolic (congestive) heart failure; I42.8 Other cardiomyopathies; F15.10 Other stimulant abuse, uncomplicated; R82.5 Elevated urine levels of drugs, medicaments and biological substances; Z82.49 Family history of ischemic heart disease and other diseases of the circulatory system
CPT/HCPCS: 36415; 71045; 71275; 78452; 80048; 80053; 80061; 80306; 83036; 83735; 83880; 84443; 84484; 85025; 85378; 93005; 93017; 93306; 96372; 96374; 96375; 96376; 99285; A9500; J1650; J1940; J2785; Q9967

== ENCOUNTER → 2024-01-10 13:21 | Outpatient (BNVA) | payer MEDICAID, SELFPAY | PROVIDERS: PCP Family Medicine; Visit Provider Nurse Practitioner Family | DX: I11.0 Hypertensive heart disease with heart failure (principal); I50.20 Unspecified systolic (congestive) heart failure; Z87.891 Personal history of nicotine dependence | CPT/HCPCS: 36415; 71046; 80048; 83880; 99214 ==

== ENCOUNTER 2024-01-31 09:50 | Emergency (ER) | payer MEDICAID, SELFPAY ==
[2024-01-31 09:55] VITALS: BP 123/90; PULSE 95; RESP 18; TEMP 36.6; O2SAT 97
--- NOTE | 2024-01-31 09:59 | XRR_ITS ---
PROCEDURE INFORMATION: Exam: XR Chest Exam date and time: 01/31/2024 10:15 AM Age: 59 years old Clinical indication: Shortness of breath; Additional info: SOB TECHNIQUE: Imaging protocol: Radiologic exam of the chest. Views: 1 view. COMPARISON: CR XR chest 2V* [id number] 01/10/2024 4:08 PM FINDINGS: Lungs: Unremarkable. No consolidation. Pleural spaces: Unremarkable. No pleural effusion. No pneumothorax. Heart/Mediastinum: Unremarkable. No cardiomegaly. Bones/joints: Unremarkable. XR/XR chest 1V portable [id number] IMPRESSION: No acute findings.
--- NOTE | 2024-01-31 10:01 | ECG_ITS ---
[facility] Test Date: 2024-01-31 Pat Name: Estrada Bangura Department: Room: Gender: Male Picture Painter: : 1965 Requested By: Jarrod Orozco Order Number: [id number] Ricky MD: Ifeanyi Almendarez M.D. Measurements Intervals [place] Rate: 98 P: 3 ND: 152 QRS: 57 QRSD: 109 T: 60 QT: 382 QTc: 488 Interpretive Statements SINUS RHYTHM WITH OCCASIONAL SUPRAVENTRICULAR PREMATURE COMPLEXES Compared to ECG 12/21/2023 03:02:31 No significant changes Electronically Signed On 01-31-2024 18:40:09 CDT by Ifeanyi Almendarez M.D. [email or web address] [email or web address]/store/[id number] f
--- NOTE | 2024-01-31 10:18 | W.ED.SOB ---
HPI - SOB/Dyspnea General: Chief Complaint: Shortness of Breath/Dyspnea Stated Complaint: Sent from heart care Time Seen by Provider: 01/31/24 09:55 Source: patient Mode of arrival: ambulatory Limitations: no limitations History of Present Illness: HPI Narrative: 59-year-old male has a history of CHF cardiomyopathy he states he had increasing chest pain along with shortness of breath over the last 2 days he states he just feels like he just cannot catch his breath he denies any fevers. He denies any cough he denies any vomiting or diarrhea. Associated symptoms: Reports chest pain; Deny abdominal pain, fever(s), nausea or vomiting Review of Systems Const: Denies: fever(s), chills, body aches or change in appetite ENMT: Denies: throat pain or dental pain Card: Reports: chest pain Resp: Reports: dyspnea GI: Denies: abdominal pain, nausea, vomiting or diarrhea : Denies: dysuria Musc: Denies: neck pain or back pain Skin/Breast: Denies: rash Neuro: Denies: headache(s) PFSH ED PFSH: Medical History Essential hypertension Heart failure with reduced ejection fraction No pertinent past medical history Surgical History No pertinent past surgical history Social History Smoking and tobacco/nicotine status: former use of tobacco/nicotine Alcohol intake: never Substance/Drug Use: former Date of last use: a few months ago Former substance use details: Meth, [place]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) Adopted: No service: No Current occupational exposures/hazards: Yes 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[employer], 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 Physical Exam Const: COMMON NORMALS: no acute distress, patient oriented x3 and healthy appearing HENMT: COMMON NORMALS: normocephalic and atraumatic HEAD & SCALP: normocephalic and atraumatic Neck/C-Spine: COMMON NORMALS: full ROM and supple Chest: COMMONS NORMALS: normal inspection of the chest Resp: COMMON NORMALS: normal respiratory effort, No retractions, No use of accessory muscles and clear to auscultation bilaterally AUSCULTATION: clear to auscultation bilaterally Cardio: COMMON NORMALS: regular rate, regular rhythm and No murmurs present (Cardio) RATE: regular rate RHYTHM: regular rhythm GI: COMMON NORMALS: Normal to inspection, nondistended, normoactive bowel sounds present, Soft to palpation, non-tender and no masses PALPATION: Yes Soft to palpation Extremity: COMMON NORMALS: normal to inspection and full ROM Neuro: COMMON NORMALS: patient oriented x3, moves all extremities and no focal motor deficits Psych: COMMON NORMALS: mental status grossly normal, Normal thought process present and cooperative THOUGHT PROCESS: Normal thought process present Skin: COMMON NORMALS: no rashes or lesions noted and no wounds GENERAL SKIN EXAM: no rashes or lesions noted Course Vital Signs: Vital signs: Vital Signs Temperature 97.9 F 01/31/24 09:55 Pulse Rate 95 01/31/24 10:28 Respiratory Rate 18 01/31/24 10:24 Blood Pressure 123/90 01/31/24 09:55 Pulse Oximetry 96 01/31/24 10:24 Oxygen Delivery Me thod Room Air 01/31/24 10:24 MDM - SOB/Dyspnea Medical Decision Making Patient presents here with shortness of breath patient after being here want to sign AMA did not really give a reason I did speak to him he states he just wants to get home does not want to be in the hospital anymore I informed him of his workup is not complete he could be having a pulmonary embolism or a heart attack causing this he understands the risk and did sign out AMA he does have a medical decision-making capacity as well. Medical Records I reviewed the patient's medical records. Lab Data I reviewed the patient's lab results. 01/31/24 10:13 01/31/24 10:13 Labs/Radiology: Radiology Impressions Chest X-Ray 01/31/24 09:59 IMPRESSION: No acute findings. Laboratory Results WBC 5.74 10^3/uL (3.29-11.43) 01/31/24 10:13 RBC 5.58 10^6/uL (3.85-5.65) 01/31/24 10:13 Hgb 15.10 g/dL (11.27-16.99) 01/31/24 10:13 Hct 46.3 % (37-53) 01/31/24 10:13 MCV 83.0 fl (82-101) 01/31/24 10:13 MCH 27.1 pg (27-33) 01/31/24 10:13 MCHC 32.6 g/dL (30-55) 01/31/24 10:13 RDW 13.4 % (12.1-15.1) 01/31/24 10:13 Plt Count 164 10^3/cmm (157-399) 01/31/24 10:13 MPV 8.0 fL (7.4-10.4) 01/31/24 10:13 Neut % (Auto) 54.3 % 01/31/24 10:13 Lymph % (Auto) 34.8 % 01/31/24 10:13 [place] % (Auto) 8.5 % 01/31/24 10:13 Eos % (Auto) 1.4 % 01/31/24 10:13 Baso % (Auto) 0.7 % 01/31/24 10:13 Neut # (Auto) 3.11 10^3/uL (1.8-7.7) 01/31/24 10:13 Lymph # (Auto) 2.0 10^3/uL (0.8-4.8) 01/31/24 10:13 [place] # (Auto) 0.5 10^3/uL (0.2-0.9) 01/31/24 10:13 Eos # (Auto) 0.1 10^3/uL (0.0-0.8) 01/31/24 10:13 Baso # (Auto) 0.0 10^3/uL (0.0-0.1) 01/31/24 10:13 Nucleated RBC % (auto) 0 % 01/31/24 10:13 Nucleated RBCs # 0.0 /100WBC 01/31/24 10:13 D-Dimer 0.41 ug/mLFEU (0-0.59) 01/31/24 10:13 Troponin T Baseline 8 ng/L (0-15) 01/31/24 10:13 All radiology interpretation(s) finalized by discharge EKG Data EKG 1: I personally reviewed and interpreted this EKG as follows: EKG Interpretation Date: 01/31/24 EKG interpretation time: 10:01 Interpretation: nsr hr [address] elevation qrs 109 qtc 437 Discharge Plan Discharge Patient Disposition: Left Against Medical Advice Clinical Impression: Acute dyspnea Condition: Stable Prescriptions: No Action carvedilol 6.25 mg tablet 6.25 mg PO BID Qty: 60 1RF furosemide 40 mg tablet 80 mg PO DAILY@0800 Qty: 14 0RF potassium chloride 20 mEq tablet extended release 20 meq PO DAILY Qty: 14 0RF losartan 50 mg tablet 50 mg PO DAILY isosorbide mononitrate 30 mg Tablet Extended Release 24 Hr 30 mg PO DAILY Qty: 30 0RF Referrals: Traci Hoskins DO [Primary Care Provider] - Coding Level of Care Code ED Interior Wall Assembler for Pablo Borges
[2024-01-31 10:24] VITALS: PULSE 94; RESP 18; O2SAT 96
[2024-01-31] MEDS: ipratropium-albuterol 3 mL Neb INHALATION (10:24)
[2024-01-31 10:28] VITALS: PULSE 95
[2024-01-31 10:32] LABS: Basophils % 0.7 %; Eosinophils # 0.1 10^3/uL (0.0-0.8); Eosinophils % 1.4 %; Hematocrit 46.3 % (37-53); Lymphocytes % 34.8 %; Mean Corpuscular HGB Conc 32.6 g/dL (30-55); Mean Corpuscular Hemoglobin 27.1 pg (27-33); Monocytes # 0.5 10^3/uL (0.2-0.9); Monocytes % 8.5 %; Neutrophils # 3.11 10^3/uL (1.8-7.7); Neutrophils % 54.3 %; Nucleated Red Blood Cells % 0 %; Platelet Count 164 10^3/cmm (157-399); Red Blood Count 5.58 10^6/uL (3.85-5.65); Red Cell Distribution Width 13.4 % (12.1-15.1); White Blood Count 5.74 10^3/uL (3.29-11.43)
[2024-01-31 10:48] LABS: Troponin(5th) Baseline 8 ng/L (0-15)
[2024-01-31 10:57] LABS: D Dimer 0.41 ug/mLFEU (0-0.59)
[2024-01-31 11:05] LABS: Alanine Aminotransferase 44 U/L (0-41); Albumin Level 4.1 g/dL (3.5-5.2); Alkaline Phosphatase 71 U/L (40-130); Anion Gap 16.4 (5-19); Aspartate Amino Transferase 29 U/L (0-40); Blood Urea Nitrogen 18 mg/dL (8-23); Calcium 9.3 mg/dL (8.5-10.5); Carbon Dioxide 24 mmol/L (22-29); Chloride 101 mmol/L (98-107); Globulin 2.9 g/dL (1.3-4.6); Glomerular Filtration Rate 68.3 mL/min (90-130); Glucose 191 mg/dL (65-115); NT Pro B Type Natriuretic Pept 114 pg/mL (0-125); Osmolality Calculated 293 mOsm/kg (285-295); Potassium 3.4 mmol/L (3.5-5.1); Sodium 138 mmol/L (136-145); Total Bilirubin 0.3 mg/dL (0.15-1.2)
== END 2024-01-31 10:55 | disposition left against medical advice (07) ==
PROVIDERS: Emergency Provider Emergency Medicine; PCP Family Medicine
DX: R06.00 Dyspnea, unspecified (principal); Z53.29 Procedure and treatment not carried out because of patient's decision for other reasons; Z87.891 Personal history of nicotine dependence; I11.0 Hypertensive heart disease with heart failure; I50.20 Unspecified systolic (congestive) heart failure
CPT/HCPCS: 71045; 80053; 83880; 84484; 85025; 85378; 93005; 94640; 99213; 99285

== ENCOUNTER 2024-05-03 10:33 | Emergency (ER) | payer MEDICAID, SELFPAY ==
[2024-05-03 10:40] VITALS: BP 175/91; PULSE 96; RESP 22; TEMP 36.3; O2SAT 96; BMI 37.3
--- NOTE | 2024-05-03 10:46 | ED_ITS ---
<Statement entered by Christiano Real MD - 05/03/24 22:33> Patient seen by midlevel. I was available for consultation but was not directly consulted on the care of this patient. Christiano Real MD HPI - Extremity Problem 2 General: Chief complaint: Extremity Problem,Nontraumatic Stated complaint: PCP sent possible blood clot Time Seen by Provider: 05/03/24 10:51 PFS ED 2 PFSH: Medical History Essential hypertension Heart failure with reduced ejection fraction No pertinent past medical history Surgical History No pertinent past surgical history Social History Smoking and tobacco/nicotine status: former use of tobacco/nicotine Alcohol intake: never Substance/Drug Use: former Date of last use: a few months ago Former substance use details: Meth, [place]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) Adopted: No service: No Current occupational exposures/hazards: Yes 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 Laboratory Results WBC 6.77 10^3/uL (3.29-11.43) 05/03/24 11:08 RBC 4.92 10^6/uL (3.85-5.65) 05/03/24 11:08 Hgb 13.80 g/dL (11.27-16.99) 05/03/24 11:08 Hct 41.9 % (37-53) 05/03/24 11:08 MCV 85.2 fl (82-101) 05/03/24 11:08 MCH 28.0 pg (27-33) 05/03/24 11:08 MCHC 32.9 g/dL (30-55) 05/03/24 11:08 RDW 13.2 % (12.1-15.1) 05/03/24 11:08 Plt Count 160 10^3/cmm (157-399) 05/03/24 11:08 MPV 7.9 fL (7.4-10.4) 05/03/24 11:08 Neut % (Auto) 54.7 % 05/03/24 11:08 Lymph % (Auto) 31.5 % 05/03/24 11:08 [place] % (Auto) 10.5 % 05/03/24 11:08 Eos % (Auto) 2.1 % 05/03/24 11:08 Baso % (Auto) 0.6 % 05/03/24 11:08 Neut # (Auto) 3.71 10^3/uL (1.8-7.7) 05/03/24 11:08 Lymph # (Auto) 2.1 10^3/uL (0.8-4.8) 05/03/24 11:08 [place] # (Auto) 0.7 10^3/uL (0.2-0.9) 05/03/24 11:08 Eos # (Auto) 0.1 10^3/uL (0.0-0.8) 05/03/24 11:08 Baso # (Auto) 0.0 10^3/uL (0.0-0.1) 05/03/24 11:08 Nucleated RBC % (auto) 0 % 05/03/24 11:08 Nucleated RBCs # 0.0 /100WBC 05/03/24 11:08 D-Dimer 0.63 ug/mLFEU (0-0.59) H 05/03/24 11:08 Sodium 140 mmol/L (136-145) 05/03/24 11:08 Potassium 3.9 mmol/L (3.5-5.1) 05/03/24 11:08 Chloride 102 mmol/L (98-107) 05/03/24 11:08 Carbon Dioxide 25 mmol/L (22-29) 05/03/24 11:08 Anion Gap 16.9 (5-19) 05/03/24 11:08 BUN 24 mg/dL (8-23) H 05/03/24 11:08 Creatinine 1.1 mg/dL (0.7-1.2) 05/03/24 11:08 GFR Calculation 68.3 mL/min (90-130) L 05/03/24 11:08 Glucose 144 mg/dL (65-115) H 05/03/24 11:08 Calculated Osmolality 297 mOsm/kg (285-295) H 05/03/24 11:08 Calcium 9.3 mg/dL (8.5-10.5) 05/03/24 11:08 Total Bilirubin 0.2 mg/dL (0.15-1.2) 05/03/24 11:08 AST 23 U/L (0-40) 05/03/24 11:08 ALT 38 U/L (0-41) 05/03/24 11:08 Alkaline Phosphatase 71 U/L (40-130) 05/03/24 11:08 C-Reactive Protein 12.7 mg/L (0.0-4.9) H 05/03/24 11:08 NT-Pro-B Natriuret Pep 249 pg/mL (0-125) H 05/03/24 11:08 Total Protein 6.9 g/dL (6.6-8.7) 05/03/24 11:08 Albumin 4.0 g/dL (3.5-5.2) 05/03/24 11:08 Globulin 2.9 g/dL (1.3-4.6) 05/03/24 11:08 Discharge Plan Discharge Patient Disposition: Home Clinical Impression: Cellulitis of foot, left Condition: Stable Prescriptions: New doxycycline monohydrate 100 mg capsule 100 mg PO Q12H 7 Days Qty: 14 0RF No Action furosemide 40 mg tablet 80 mg PO DAILY@0800 Qty: 14 0RF potassium chloride 20 mEq tablet extended release 20 meq PO DAILY Qty: 14 0RF losartan 50 mg tablet 50 mg PO DAILY carvedilol 6.25 mg tablet 6.25 mg PO BID Qty: 60 1RF isosorbide mononitrate 30 mg Tablet Extended Release 24 Hr 30 mg PO DAILY Qty: 30 0RF Discharge Orders: Discharge ED (Routine); Ordered 05/03/24 Ordered By: Renuka Siddiqi Referrals: Gato,Traci, DO [Primary Care Provider] - Patient Instructions: Cellulitis (ED) Coding Level of Care Code ED Leg Breaker for Pablo Borges
--- NOTE | 2024-05-03 10:51 | USCV_ITS ---
Sveta Estrada Age: 59 Gender: M : 1965 Exam Date: 05/03/2024 11:13 Ordering Phys: Renuka Siddiqi Technologist: [place] [facility] [place]: [place] PROCEDURES: Venous duplex imaging was performed in only the left lower extremity. In addition, the posterior tibial veins were evaluated. FINDINGS: no dvt CONCLUSIONS No evidence of left lower extremity DVT. Lyndon Aguero MD (Electronically Signed) Final Date: 03 May 2024 12:43 S
[2024-05-03 11:15] LABS: Basophils % 0.6 %; Eosinophils # 0.1 10^3/uL (0.0-0.8); Eosinophils % 2.1 %; Hematocrit 41.9 % (37-53); Lymphocytes # 2.1 10^3/uL (0.8-4.8); Lymphocytes % 31.5 %; Mean Corpuscular HGB Conc 32.9 g/dL (30-55); Mean Corpuscular Volume 85.2 fl (82-101); Mean Platelet Volume 7.9 fL (7.4-10.4); Monocytes # 0.7 10^3/uL (0.2-0.9); Monocytes % 10.5 %; Neutrophils # 3.71 10^3/uL (1.8-7.7); Neutrophils % 54.7 %; Nucleated Red Blood Cells % 0 %; Platelet Count 160 10^3/cmm (157-399); Red Blood Count 4.92 10^6/uL (3.85-5.65); Red Cell Distribution Width 13.2 % (12.1-15.1); White Blood Count 6.77 10^3/uL (3.29-11.43)
--- NOTE | 2024-05-03 11:22 | XRR_ITS ---
PROCEDURE INFORMATION: Exam: XR Chest Exam date and time: 05/03/2024 12:00 PM Age: 59 years old Clinical indication: Shortness of breath; Additional info: SOB TECHNIQUE: Imaging protocol: Radiologic exam of the chest. Views: 1 view. COMPARISON: CR XR chest 1V portable [id number] 01/31/2024 10:15 AM FINDINGS: Lungs: Unremarkable. No consolidation. Pleural spaces: Unremarkable. No pleural effusion. No pneumothorax. Heart/Mediastinum: Unremarkable. No cardiomegaly. Bones/joints: Unremarkable. XR/XR chest 1V portable [id number] IMPRESSION: No acute findings.
--- NOTE | 2024-05-03 11:22 | ED_ITS ---
HPI - Extremity Problem 2 General: Chief complaint: Extremity Problem,Nontraumatic Stated complaint: PCP sent possible blood clot Time Seen by Provider: 05/03/24 10:51 Source: patient Mode of arrival: ambulatory Limitations: no limitations History of Present Illness: Patient is a 59-year-old male who presents to the ED today at the request of his PCP Dr. Hoskins for evaluation of a possible left leg DVT/pulmonary emboli. Report from her paperwork stated that patient has had left leg/foot swelling/redness over the past 3 days and is also having shortness of breath and was concerned for PE based on his Wells Score. Patient tells me his legs are always swollen although the swelling to the top of his left foot is new-states it was beet red earlier but has somewhat subsided currently. He states he has a history of CHF. He is currently on Lasix for this. Unknown last echocardiogram. He tells me his legs feel like he has [id number] in them but he is not a diabetic. He is reporting dyspnea over the past 6 months. He does not require oxygen. He arrives satting 96% on room air. MD Complaint: extremity pain Onset (ago): week(s) Pain Consistency: constant Location: left and right Radiation: none Relieving factors: nothing Exacerbating factors: nothing Associated symptoms: Reports short of breath; Deny chest pain, fever(s) or rash Review of Systems 2 Const: Denies: fever(s), chills, body aches, fatigue or malaise Card: Denies: chest pain Resp: Reports: dyspnea (chronic); Denies: wheezing or hemoptysis GI: Denies: abdominal pain : Denies: flank pain, dysuria or hematuria Musc: Reports: extremity pain and extremity swelling; Denies: neck pain, back pain, joint pain, joint swelling or limited range of motion Skin/Breast: Denies: rash Neuro: Reports: sensory changes; Denies: headache(s), numbness in extremities or weakness in extremities PFSH ED 2 PFSH: Medical History Essential hypertension Heart failure with reduced ejection fraction No pertinent past medical history Surgical History No pertinent past surgical history Social History Smoking and tobacco/nicotine status: former use of tobacco/nicotine Alcohol intake: never Substance/Drug Use: former Date of last use: a few months ago Former substance use details: Meth, [place]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) Adopted: No service: No Current occupational exposures/hazards: Yes 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[employer], 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 Physical Exam 2 Const: COMMON NORMALS: no acute distress, patient oriented x3, no limitations and alert GENERAL APPEARANCE: cooperative NUTRITIONAL APPEARANCE: obese ORIENTATION/CONSCIOUSNESS: Yes awake, Yes oriented to person, Yes oriented to place and Yes oriented to time Neck/C-Spine: COMMON NORMALS: no JVD Resp: COMMON NORMALS: normal respiratory effort and clear to auscultation bilaterally AUSCULTATION: clear to auscultation bilaterally Cardio: COMMON NORMALS: no JVD, regular rate and regular rhythm RATE: r egular rate RHYTHM: regular rhythm GI: COMMON NORMALS: Normal to inspection, nondistended, normoactive bowel sounds present, Soft to palpation and non-tender PALPATION: Yes Soft to palpation : COMMON NORMALS: Yes no CVA tenderness BLADDER/KIDNEY EXAM: Yes no CVA tenderness Back/Pelvis: COMMON NORMALS: no CVA tenderness and thoracic and lumbar spine normal to inspection Extremity: COMMON NORMALS: full ROM and capillary refill normal NARRATIVE EXTREMITY EXAM: bilateral LE edema-edema to dorsal aspect L foot when compared to R-slight erythema; no lymphangitis; chronic stasis skin changes; peripheral pulses normal GENERAL: Yes normal exam except as noted Neuro: COMMON NORMALS: patient oriented x3, moves all extremities, no focal motor deficits and no sensory deficits noted SENSORIUM/ORIENTATION: Yes alert, Yes oriented to person, Yes oriented to place and Yes oriented to time MOTOR EXAM: 5/5 motor strength present throughout Course 2 Vital Signs: Vital signs: Vital Signs Temperature 97.4 F L 05/03/24 10:40 Pulse Rate 96 05/03/24 10:40 Respiratory Rate 22 H 05/03/24 10:40 Blood Pressure 175/91 05/03/24 10:40 Pulse Oximetry 96 05/03/24 10:40 Oxygen Delivery Me thod Room Air 05/03/24 10:40 MDM - Extremity (Nontraumatic) Medical Decision Making Ultrasound of his left lower extremity is negative for DVT. He is satting 96% on room air. He is not tachycardic. Blood work overall is nonactionable. His BNP is 249. No evidence of fluid overload on his CXR or on exam. D-dimer obtained and resulted at 0.6. This is a normal age-adjusted level. At this time I do not have any suspicion for pulmonary emboli the CTA imaging was not obtained. EKG unremarkable. Will cover for cellulitis to the left foot. Recommend he continue to follow-up with his PCP and cardiology. Return ED precautions given. Medical Records I reviewed the patient's medical records. Lab Data I reviewed the patient's lab results. 05/03/24 11:08 05/03/24 11:08 Laboratory Results WBC 6.77 10^3/uL (3.29-11.43) 05/03/24 11:08 RBC 4.92 10^6/uL (3.85-5.65) 05/03/24 11:08 Hgb 13.80 g/dL (11.27-16.99) 05/03/24 11:08 Hct 41.9 % (37-53) 05/03/24 11:08 MCV 85.2 fl (82-101) 05/03/24 11:08 MCH 28.0 pg (27-33) 05/03/24 11:08 MCHC 32.9 g/dL (30-55) 05/03/24 11:08 RDW 13.2 % (12.1-15.1) 05/03/24 11:08 Plt Count 160 10^3/cmm (157-399) 05/03/24 11:08 MPV 7.9 fL (7.4-10.4) 05/03/24 11:08 Neut % (Auto) 54.7 % 05/03/24 11:08 Lymph % (Auto) 31.5 % 05/03/24 11:08 [place] % (Auto) 10.5 % 05/03/24 11:08 Eos % (Auto) 2.1 % 05/03/24 11:08 Baso % (Auto) 0.6 % 05/03/24 11:08 Neut # (Auto) 3.71 10^3/uL (1.8-7.7) 05/03/24 11:08 Lymph # (Auto) 2.1 10^3/uL (0.8-4.8) 05/03/24 11:08 [place] # (Auto) 0.7 10^3/uL (0.2-0.9) 05/03/24 11:08 Eos # (Auto) 0.1 10^3/uL (0.0-0.8) 05/03/24 11:08 Baso # (Auto) 0.0 10^3/uL (0.0-0.1) 05/03/24 11:08 Nucleated RBC % (auto) 0 % 05/03/24 11:08 Nucleated RBCs # 0.0 /100WBC 05/03/24 11:08 D-Dimer 0.63 ug/mLFEU (0-0.59) H 05/03/24 11:08 Sodium 140 mmol/L (136-145) 05/03/24 11:08 Potassium 3.9 mmol/L (3.5-5.1) 05/03/24 11:08 Chloride 102 mmol/L (98-107) 05/03/24 11:08 Carbon Dioxide 25 mmol/L (22-29) 05/03/24 11:08 Anion Gap 16.9 (5-19) 05/03/24 11:08 BUN 24 mg/dL (8-23) H 05/03/24 11:08 Creatinine 1.1 mg/dL (0.7-1.2) 05/03/24 11:08 GFR Calculation 68.3 mL/min (90-130) L 05/03/24 11:08 Glucose 144 mg/dL (65-115) H 05/03/24 11:08 Calculated Osmolality 297 mOsm/kg (285-295) H 05/03/24 11:08 Calcium 9.3 mg/dL (8.5-10.5) 05/03/24 11:08 Total Bilirubin 0.2 mg/dL (0.15-1.2) 05/03/24 11:08 AST 23 U/L (0-40) 05/03/24 11:08 ALT 38 U/L (0-41) 05/03/24 11:08 Alkaline Phosphatase 71 U/L (40-130) 05/03/24 11:08 C-Reactive Protein 12.7 mg/L (0.0-4.9) H 05/03/24 11:08 NT-Pro-B Natriuret Pep 249 pg/mL (0-125) H 05/03/24 11:08 Total Protein 6.9 g/dL (6.6-8.7) 05/03/24 11:08 Albumin 4.0 g/dL (3.5-5.2) 05/03/24 11:08 Globulin 2.9 g/dL (1.3-4.6) 05/03/24 11:08 XR interpretation done by ED provider, pending radiology final review Discharge Plan Discharge Patient Disposition: Home Clinical Impression: Cellulitis of foot, left Condition: Stable Prescriptions: New doxycycline monohydrate 100 mg capsule 100 mg PO Q12H 7 Days Qty: 14 0RF No Action furosemide 40 mg tablet 80 mg PO DAILY@0800 Qty: 14 0RF potassium chloride 20 mEq tablet extended release 20 meq PO DAILY Qty: 14 0RF losartan 50 mg tablet 50 mg PO DAILY carvedilol 6.25 mg tablet 6.25 mg PO BID Qty: 60 1RF isosorbide mononitrate 30 mg Tablet Extended Release 24 Hr 30 mg PO DAILY Qty: 30 0RF Discharge Orders: Discharge ED (Routine); Ordered 05/03/24 Ordered By: Renuka Siddiqi Referrals: Traci Hoskins DO [Primary Care Provider] - Patient Instructions: Cellulitis (ED) Coding Level of Care Code ED Lactation Coordinator for Pablo Borges
--- NOTE | 2024-05-03 11:22 | ECG_ITS ---
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 Measurements Intervals [place] Rate: 92 P: 25 [place]: 165 QRS: 63 QRSD: 97 T: 35 QT: 379 QTc: 471 Interpretive Statements SINUS RHYTHM Compared to ECG 01/31/2024 10:01:13 No significant changes Electronically Signed On 05-03-2024 11:39:44 CDT by Ameya Foreman M.D. [id number]
[2024-05-03 11:37] LABS: Alanine Aminotransferase 38 U/L (0-41); Alkaline Phosphatase 71 U/L (40-130); Anion Gap 16.9 (5-19); Aspartate Amino Transferase 23 U/L (0-40); Blood Urea Nitrogen 24 mg/dL (8-23); C Reactive Protein 12.7 mg/L (0.0-4.9); Calcium 9.3 mg/dL (8.5-10.5); Carbon Dioxide 25 mmol/L (22-29); Chloride 102 mmol/L (98-107); Creatinine Clr Calc Pharmacy 91.8925; Globulin 2.9 g/dL (1.3-4.6); Glomerular Filtration Rate 68.3 mL/min (90-130); Glucose 144 mg/dL (65-115); Osmolality Calculated 297 mOsm/kg (285-295); Potassium 3.9 mmol/L (3.5-5.1); Sodium 140 mmol/L (136-145); Total Bilirubin 0.2 mg/dL (0.15-1.2); Total Protein 6.9 g/dL (6.6-8.7)
[2024-05-03 11:47] LABS: NT Pro B Type Natriuretic Pept 249 pg/mL (0-125)
[2024-05-03 11:55] LABS: D Dimer 0.63 ug/mLFEU (0-0.59)
[2024-05-03 12:26] VITALS: BP 157/101; PULSE 87; O2SAT 95
== END 2024-05-03 12:27 | disposition home or self-care (01) ==
PROVIDERS: Emergency Provider Physician Assistant; PCP Family Medicine
DX: L03.116 Cellulitis of left lower limb (principal); I11.0 Hypertensive heart disease with heart failure; I50.20 Unspecified systolic (congestive) heart failure; Z87.891 Personal history of nicotine dependence
CPT/HCPCS: 36415; 71045; 80053; 83880; 85025; 85378; 86140; 93005; 93971; 99285

== ENCOUNTER 2024-06-27 03:32 | Emergency (ER) | payer MEDICAID, SELFPAY ==
[2024-06-27] VITALS (25 sets, daily range): BP systolic 151–206; BP diastolic 90–127; PULSE 95–116; RESP 12–34; TEMP 36.9; O2SAT 82–100; BMI 32.3
--- NOTE | 2024-06-27 03:35 | XRR_ITS ---
PROCEDURE INFORMATION: Exam: XR Chest Exam date and time: 06/27/2024 3:47 AM Age: 59 years old Clinical indication: Chest wall pain; Additional info: Chest pain TECHNIQUE: Imaging protocol: Radiologic exam of the chest. Views: 1 view. COMPARISON: CR XR chest 1V portable [id number] 05/03/2024 12:00 PM FINDINGS: Lungs: Unremarkable. No consolidation. Pleural spaces: Unremarkable. No pleural effusion. No pneumothorax. Heart/Mediastinum: Unremarkable. No cardiomegaly. Bones/joints: Unremarkable. XR/XR chest 1V portable [id number] IMPRESSION: No acute findings.
--- NOTE | 2024-06-27 03:40 | ECG_ITS ---
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 Measurements Intervals [place] Rate: 113 P: 0 MA: 0 QRS: 54 QRSD: 104 T: 48 QT: 341 QTc: 469 Interpretive Statements SINUS RHYTHM WITH SINUS ARRHYTHMIA Electronically Signed On 06-27-2024 14:55:24 CDT by Shine López M.D. [id number]
--- NOTE | 2024-06-27 03:46 | ED_ITS ---
HPI - Chest Pain 2 General: Chief Complaint: Chest Pain Stated Complaint: CP Time Seen by Provider: 06/27/24 03:36 History of Present Illness: Patient presents to the ER with complaints of right upper quadrant abdominal/right lower chest pain. Patient is also having shortness of breath. Patient says that he coughed heard a pop and now he feels like he is drowning. Patient said last time he felt like he was he was having a CHF exacerbation. Patient does take Lasix risks for this and he takes it every day like clockwork. Patient denies any nausea vomiting fever chills diaphoresis. Patient says he feels like he cannot catch his breath and his chest is tight. It hurts to take big deep breaths and is right lower side. On arrival patient's heart rate was approximate 116 beats a minute with a blood pressure 193/126. Related Data Home Medications Medication Instructions Recorded Confirmed losartan 50 mg tablet 50 mg PO DAILY 01/31/24 01/31/24 Previous Rx's Medication Instructions Recorded isosorbide mononitrate 30 mg 30 mg PO DAILY #30 tabs 12/22/23 tablet,extended release 24 hr furosemide 40 mg tablet 80 mg (2 x 40 mg) PO DAILY@0800 12/28/23 #14 tabs potassium chloride 20 mEq 20 meq PO DAILY #14 tabs 12/28/23 tablet,extended release carvedilol 6.25 mg tablet 6.25 mg PO BID #60 tabs 04/12/24 Allergies Allergy/AdvReac Type Severity Reaction Status Date / Time No Known Allergies Allergy Verified 01/31/24 09:18 Review of Systems 2 General: Reports: 10 or more systems reviewed and unremarkable except in HPI and below PFSH ED 2 PFSH: Medical History Essential hypertension Heart failure with reduced ejection fraction No pertinent past medical history Surgical History No pertinent past surgical history Social History Smoking and tobacco/nicotine status: former use of tobacco/nicotine Alcohol intake: never Substance/Drug Use: former Date of last use: a few months ago Former substance use details: Meth, [place]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) Adopted: No service: No Current occupational exposures/hazards: Yes 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[employer], 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 Physical Exam 2 Const: COMMON NORMALS: no acute distress, average body habitus, patient oriented x3, no limitations, healthy appearing, alert and well nourished HENMT: COMMON NORMALS: normocephalic, atraumatic, hearing grossly normal bilaterally, external ears normal, Normal external nose present and moist oral mucous membranes HEAD & SCALP: normocephalic and atraumatic NOSE: Normal external nose present EXTERNAL EAR: Yes external ears normal Neck/C-Spine: COMMON NORMALS: no JVD Chest: COMMONS NORMALS: normal inspection of the chest and normal palpation of entire chest wall Resp: COMMON NORMALS: normal respiratory effort, No retractions, No use of accessory muscles and clear to auscultation bilaterally AUSCULTATION: clear to auscultation bilaterally Cardio: COMMON NORMALS: no JVD, regular rhythm, S1 normal heart sound present, S2 normal heart sound present, No gallops present (Cardio), No clicks present (Cardio), No murmurs present (Cardio) and No rub (Cardio); negative for regular rate (Mildly tachycardic) RATE: abnormal rate (Mildly tachycardic) RHYTHM: regular rhythm HEART SOUNDS: S1 normal heart sound present and S2 normal heart sound present GI: COMMON NORMALS: Normal to inspection, nondistended, normoactive bowel sounds present, Soft to palpation, No hepatosplenomegaly present and no masses; negative for non-tender (Tender to palpate right upper quadrant) PALPATION: Y es Soft to palpation and Yes No hepatosplenomegaly present Neuro: COMMON NORMALS: patient oriented x3 SENSORIUM/ORIENTATION: Yes alert Course 2 Vital Signs: Vital signs: Vital Signs Temperature 98.5 F 06/27/24 03:32 Pulse Rate 104 H 06/27/24 06:23 Respiratory Rate 16 06/27/24 06:23 Blood Pressure 156/127 06/27/24 06:23 Pulse Oximetry 92 06/27/24 06:23 Oxygen Delivery Me thod Room Air 06/27/24 04:30 MDM - Chest Pain Medical Decision Making Patient presents with chest pain and right upper quadrant pain. Patient chest pain workup included abdominal pelvic CT scan, results were all benign. Patient's pain improved. Patient was discharged home Medical Records I reviewed the patient's medical records. Lab Data I reviewed the patient's lab results. 06/27/24 03:40 06/27/24 03:40 Radiology Impressions Chest X-Ray 06/27/24 03:35 IMPRESSION: No acute findings. Abdomen/Pelvis CT 06/27/24 04:55 IMPRESSION: 1. Benign-appearing lesions in the kidneys. No hydronephrosis 2. Fatty infiltration of the liver with sparing around the gallbladder. COMMENTS: Consistent with the [place] [employer]'s Incidental Findings Committee white paper (J Am Wolf Radiol 2018): Any incidental renal lesion less than 1 cm or classified as too small to characterize, or any incidental cystic renal lesion characterized as simple-appearing, is likely benign. No follow-up imaging is recommended for these lesions per consensus recommendations based on imaging criteria. Laboratory Results WBC 9.01 10^3/uL (3.29-11.43) 06/27/24 03:40 RBC 5.13 10^6/uL (3.85-5.65) 06/27/24 03:40 Hgb 14.40 g/dL (11.27-16.99) 06/27/24 03:40 Hct 43.4 % (37-53) 06/27/24 03:40 MCV 84.6 fl (82-101) 06/27/24 03:40 MCH 28.1 pg (27-33) 06/27/24 03:40 MCHC 33.2 g/dL (30-55) 06/27/24 03:40 RDW 12.8 % (12.1-15.1) 06/27/24 03:40 Plt Count 152 10^3/cmm (157-399) L 06/27/24 03:40 MPV 7.8 fL (7.4-10.4) 06/27/24 03:40 Neut % (Auto) 79.5 % 06/27/24 03:40 Lymph % (Auto) 10.4 % 06/27/24 03:40 [place] % (Auto) 8.7 % 06/27/24 03:40 Eos % (Auto) 0.4 % 06/27/24 03:40 Baso % (Auto) 0.4 % 06/27/24 03:40 Neut # (Auto) 7.16 10^3/uL (1.8-7.7) 06/27/24 03:40 Lymph # (Auto) 0.9 10^3/uL (0.8-4.8) 06/27/24 03:40 [place] # (Auto) 0.8 10^3/uL (0.2-0.9) 06/27/24 03:40 Eos # (Auto) 0.0 10^3/uL (0.0-0.8) 06/27/24 03:40 Baso # (Auto) 0.0 10^3/uL (0.0-0.1) 06/27/24 03:40 Nucleated RBC % (auto) 0 % 06/27/24 03:40 Nucleated RBCs # 0.0 /100WBC 06/27/24 03:40 Sodium 136 mmol/L (136-145) 06/27/24 03:40 Potassium 3.8 mmol/L (3.5-5.1) 06/27/24 03:40 Chloride 96 mmol/L (98-107) L 06/27/24 03:40 Carbon Dioxide 23 mmol/L (22-29) 06/27/24 03:40 Anion Gap 20.8 (5-19) H 06/27/24 03:40 BUN 21 mg/dL (8-23) 06/27/24 03:40 Creatinine 1.1 mg/dL (0.7-1.2) 06/27/24 03:40 GFR Calculation 68.3 mL/min (90-130) L 06/27/24 03:40 Glucose 112 mg/dL (65-115) 06/27/24 03:40 Calculated Osmolality 286 mOsm/kg (285-295) 06/27/24 03:40 Lactic Acid 1.6 mmol/L (0.5-2.2) 06/27/24 03:40 Calcium 8.9 mg/dL (8.5-10.5) 06/27/24 03:40 Magnesium 1.8 mg/dL (1.7-2.3) 06/27/24 03:40 Total Bilirubin 0.4 mg/dL (0.15-1.2) 06/27/24 03:40 AST 40 U/L (0-40) 06/27/24 03:40 ALT 65 U/L (0-41) H 06/27/24 03:40 Alkaline Phosphatase 77 U/L (40-130) 06/27/24 03:40 Troponin T Baseline < 6 ng/L (0-15) 06/27/24 03:40 Troponin T 120 Minute 6.00 ng/L (0-15) 06/27/24 05:42 Delta Troponin T 0.10713 ABS# (0-10) 06/27/24 05:42 NT-Pro-B Natriuret Pep 99 pg/mL (0-125) 06/27/24 03:40 Total Protein 7.3 g/dL (6.6-8.7) 06/27/24 03:40 Albumin 4.5 g/dL (3.5-5.2) 06/27/24 03:40 Globulin 2.8 g/dL (1.3-4.6) 06/27/24 03:40 Lipase 37 U/L (13-60) 06/27/24 03:40 Procalcitonin 0.18 ng/mL (0-0.5) 06/27/24 03:40 Urine Color Yellow (Yellow) 06/27/24 04:48 Urine Appearance Clear (CLEAR) 06/27/24 04:48 Urine pH 6.5 (5-7) 06/27/24 04:48 Ur Specific [place] 1.011 (1.005-1.030) 06/27/24 04:48 Urine Protein Negative (Negative) 06/27/24 04:48 Urine Glucose (UA) Negative (Normal) 06/27/24 04:48 Urine Ketones Negative (Negative) 06/27/24 04:48 Urine Blood Negative (Negative) 06/27/24 04:48 Urine Nitrate Negative (Negative) 06/27/24 04:48 Urine Bilirubin Negative (Negative) 06/27/24 04:48 Urine Urobilinogen 0.2 mg/dL (Negative) 06/27/24 04:48 Ur Leukocyte Esterase Trace (Negative) A 06/27/24 04:48 Urine RBC None /hpf (0-2) 06/27/24 04:48 Urine WBC 0-4 /hpf (0-5) H 06/27/24 04:48 Ur Squamous Epith Cells None /hpf (0-5) 06/27/24 04:48 Amorphous Sediment Not Reportable 06/27/24 04:48 Urine Bacteria None /hpf (NONE) 06/27/24 04:48 Urine Mucus Trace /hpf 06/27/24 04:48 All radiology interpretation(s) finalized by discharge Discharge Plan Discharge Patient Disposition: Home Clinical Impression: Abdominal pain, acute, right upper quadrant Condition: Stable Prescriptions: No Action furosemide 40 mg tablet 80 mg PO DAILY@0800 Qty: 14 0RF potassium chloride 20 mEq tablet extended release 20 meq PO DAILY Qty: 14 0RF losartan 50 mg tablet 50 mg PO DAILY carvedilol 6.25 mg tablet 6.25 mg PO BID Qty: 60 1RF isosorbide mononitrate 30 mg Tablet Extended Release 24 Hr 30 mg PO DAILY Qty: 30 0RF Discharge Orders: Discharge ED (Routine); Ordered 06/27/24 Ordered By: Delta Levy Referrals: Traci Hoskins DO [Primary Care Provider] - 1 week Patient Instructions: Abdominal Pain (ED) Coding Level of Care Code ED Blower Room Attendant for Pablo Borges
[2024-06-27 03:51] LABS: Basophils % 0.4 %; Eosinophils % 0.4 %; Hematocrit 43.4 % (37-53); Lymphocytes # 0.9 10^3/uL (0.8-4.8); Lymphocytes % 10.4 %; Mean Corpuscular HGB Conc 33.2 g/dL (30-55); Mean Corpuscular Hemoglobin 28.1 pg (27-33); Mean Corpuscular Volume 84.6 fl (82-101); Mean Platelet Volume 7.8 fL (7.4-10.4); Monocytes # 0.8 10^3/uL (0.2-0.9); Monocytes % 8.7 %; Neutrophils # 7.16 10^3/uL (1.8-7.7); Neutrophils % 79.5 %; Nucleated Red Blood Cells % 0 %; Platelet Count 152 10^3/cmm (157-399); Red Blood Count 5.13 10^6/uL (3.85-5.65); Red Cell Distribution Width 12.8 % (12.1-15.1); White Blood Count 9.01 10^3/uL (3.29-11.43)
[2024-06-27] MEDS: FUROsemide 10 mg/mL SDV 4mL 40 MG IVP (04:02)
[2024-06-27] MEDS: metoprolol tartrate 1 mg/1 mL SDV 5 mL 5 MG IVP (04:02)
[2024-06-27] MEDS: ondansetron 2 mg/ML SDV 2 mL 4 MG IVP (04:03)
[2024-06-27 04:11] LABS: Magnesium 1.8 mg/dL (1.7-2.3)
[2024-06-27 04:16] LABS: Troponin(5th) Baseline < 6 ng/L (0-15)
[2024-06-27 04:27] LABS: Lipase 37 U/L (13-60)
[2024-06-27 04:41] LABS: Alanine Aminotransferase 65 U/L (0-41); Albumin Level 4.5 g/dL (3.5-5.2); Alkaline Phosphatase 77 U/L (40-130); Aspartate Amino Transferase 40 U/L (0-40); Blood Urea Nitrogen 21 mg/dL (8-23); Calcium 8.9 mg/dL (8.5-10.5); Carbon Dioxide 23 mmol/L (22-29); Chloride 96 mmol/L (98-107); Globulin 2.8 g/dL (1.3-4.6); Glomerular Filtration Rate 68.3 mL/min (90-130); Glucose 112 mg/dL (65-115); NT Pro B Type Natriuretic Pept 99 pg/mL (0-125); Osmolality Calculated 286 mOsm/kg (285-295); Sodium 136 mmol/L (136-145); Total Bilirubin 0.4 mg/dL (0.15-1.2); Total Protein 7.3 g/dL (6.6-8.7)
[2024-06-27 04:47] LABS: Anion Gap 20.8 (5-19); Potassium 3.8 mmol/L (3.5-5.1)
--- NOTE | 2024-06-27 04:55 | CTR_ITS ---
PROCEDURE INFORMATION: Exam: CT Abdomen And Pelvis With Contrast Exam date and time: 06/27/2024 5:08 AM Age: 59 years old Clinical indication: Abdominal pain; Additional info: Ruq abd pain TECHNIQUE: Imaging protocol: Computed tomography of the abdomen and pelvis with contrast. Radiation optimization: All CT scans at this facility use at least one of these dose optimization techniques: automated exposure control; mA and/or kV adjustment per patient size (includes targeted exams where dose is matched to clinical indication); or iterative reconstruction. Contrast material: OMNI 350; Contrast volume: 100 ml; Contrast route: INTRAVENOUS (IV); COMPARISON: CT angio chest PE protcl [id number] 12/20/2023 11:17 AM RADIATION DOSE METRICS: Total DLP (mGy-cm): 1164.83 FINDINGS: Liver: Fatty infiltration of the liver. Focal sparing around the gallbladder fossa Gallbladder and biliary ducts: No gallstones Pancreas: Normal. No ductal dilation. Spleen: Normal. No splenomegaly. Adrenal glands: Normal. No mass. Kidneys and ureters: Subcentimeter bilateral renal cysts. No hydronephrosis. Stomach and bowel: Unremarkable. No obstruction. No mucosal thickening. Appendix: No evidence of appendicitis. Intraperitoneal space: Unremarkable. No free air. No significant fluid collection. Vasculature: Atherosclerotic change of the abdominal vasculature Lymph nodes: Unremarkable. No enlarged lymph nodes. Urinary bladder: Unremarkable as visualized. Reproductive: Unremarkable as visualized. Bones/joints: Unremarkable. No acute fracture. Soft tissues: Unremarkable. CT/CT abdomen pelvis w con* [id number] IMPRESSION: 1. Benign-appearing lesions in the kidneys. No hydronephrosis 2. Fatty infiltration of the liver with sparing around the gallbladder. COMMENTS: Consistent with the [place] [employer]'s Incidental Findings Committee white paper (J Am Wolf Radiol 2018): Any incidental renal lesion less than 1 cm or classified as too small to characterize, or any incidental cystic renal lesion characterized as simple-appearing, is likely benign. No follow-up imaging is recommended for these lesions per consensus recommendations based on imaging criteria.
[2024-06-27 05:04] LABS: Charge for UA Resulting for Rev
[2024-06-27 05:06] LABS: Bilirubin Urine Negative (Negative); Blood Urine Negative (Negative); Glucose Urine UA Negative (Normal); Ketones Urine Negative (Negative); Leukocyte Esterase Urine Trace (Negative); Nitrate Urine Negative (Negative); Protein Urine Negative (Negative); Specific Gravity, Urine 1.011 (1.005-1.030); Urine Appearance Clear (CLEAR); Urine Color Yellow (Yellow); Urobilinogen Urine 0.2 mg/dL (Negative); pH Urine 6.5 (5-7)
[2024-06-27] MEDS: iohexol 350 mg/mL 500 mL Btl (per mL) IV (05:13)
[2024-06-27 05:19] LABS: UA Manual Slide Review YES
[2024-06-27 05:20] LABS: Add Urine Culture? No; Mucus Urine TRACE /hpf; WBC Urine 0-4 /hpf (0-5)
[2024-06-27] MEDS: dilTIAZem 5 mg/mL SDV 5 mL 10 MG IVP (05:22)
[2024-06-27 05:33] LABS: Lactic Sepsis W/Reflex 1.6 mmol/L (0.5-2.2)
[2024-06-27 05:41] LABS: Procalcitonin 0.18 ng/mL (0-0.5)
[2024-06-27 06:03] LABS: Troponin 5 2HR Delta 0.00001 ABS# (0-10)
== END 2024-06-27 06:25 | disposition home or self-care (01) ==
PROVIDERS: Emergency Provider Emergency Medicine; PCP Family Medicine
DX: R10.11 Right upper quadrant pain (principal); I11.0 Hypertensive heart disease with heart failure; I50.20 Unspecified systolic (congestive) heart failure; Z87.891 Personal history of nicotine dependence
CPT/HCPCS: 36415; 71045; 74177; 80053; 81003; 81015; 83605; 83690; 83735; 83880; 84145; 84484; 85025; 93005; 96374; 96375; 99285; J1940; J2405; J3490